=== PATIENT | female | born 1960 | race Caucasian/White ===

== ENCOUNTER 2016-10-22 12:30 | Emergency (ER) ==
[2016-10-22 12:34] VITALS: BP 129/84; TEMP 99.3; BMI 25.3
--- NOTE | 2016-10-22 13:07 | ED.PDOC ---
General ED Provider: Dr. BARAK PARTIDA JR Chief Complaint: Extremity Pain/Injury Stated Complaint: patient states she stepped out of van and felt a pop in right knee. states it twisted.rosa oct first[ End ]99.3 93 16 95% 129/84 06/27 has tightness and burning lateral leg superficial no knee involvement except pain when tries to stand on leg"burning and tingling" using heat and ice compress/ ibuprofen Time Seen by Physician: 13:03 Mode of Arrival: Walk-In Information Source: Patient Exam Limitations: No limitations Primary Care Provider: JIMMY SCHROEDER Nursing and Triage Documentation Reviewed and Agree: No Review of Systems - Review Of Systems Constitutional: Reports: No symptoms Eyes: Reports: No symptoms Ears, Nose, Mouth, Throat: Reports: No symptoms Respiratory: Reports: No symptoms Cardiac: Reports: No symptoms GI: Reports: No symptoms : Reports: No symptoms Musculoskeletal: Reports: Muscle pain, Muscle stiffness Skin: Reports: Change in color (since graft) Neurological: Reports: No symptoms Endocrine: Reports: No symptoms Hematologic/Lymphatic: Reports: No symptoms All Other Systems: Other Past Medical History - Past Medical History Previously Healthy: No Endocrine: Reports: None Cardiovascular: Reports: CAD, CHF Respiratory: Reports: None Hematological: Reports: Other (pancytopenia) Gastrointestinal: Reports: Other (hepc) Genitourinary: Reports: None Neuro/Psych: Reports: Anxiety, Depression, Bipolar Disorder Musculoskeletal: Reports: None Cancer: Reports: None Last Menstrual Period: n/a Other Pertinent Past Medical History: hep c/gi bleeds - Surgical History General Surgical History: Reports: Hysterectomy (hysterectomy 1991), Cholecystectomy (gallbladder 1990), Orthopedic (left arm surgery after palomino,), Other (oral surgery,left arm surgery after palomino,palomino on back), Unknown - Family History Family History: Reports: Unknown - Social History Smoking Status: Current every day smoker, Heavy tobacco smoker Hx Substance Use: Yes Alcohol Screening: Heavy Physical Exam - Physical Exam Appearance: Ill-appearing, Thin Pain Distress: Moderate Eyes: EDILMA, EOMI, Conjunctiva clear ENT: Ears normal, Nose normal, Oropharynx normal Neck: Supple Respiratory: Airway patent, Breath sounds clear, Breath sounds equal, Respirations nonlabored Cardiovascular: RRR, Pulses normal, No rub, No murmur GI/: Soft, Nontender, No masses, Bowel sounds normal, No Organomegaly Musculoskeletal: Limited ROM (RUE pain right lateral leg) Skin: Warm, Dry, Normal color Neurological: Sensation intact, Motor intact, Reflexes intact, Cranial nerves intact, Alert, Oriented Re-Evaluation - Re-Evaluation Time of Re-Evaluation: 13:39 (I had to take ibuprofen even though it cuases bleeding) Status: Improved (patietn states not allowed to take ultram due to varices, OK with flexeril and norco) Critical Care Note - Critical Care Note Total Time (mins): 0 Course - Course Orders, Labs, Meds: Orders Category Date Time Status KNEE, RIGHT 4 VIEWS Stat RADS 10/22/16 13:03 Completed Vital Signs: Temp Pulse Resp BP Pulse Ox 10/22/16 12:31 99.3 F 93 H 16 129/84 95 Departure - Departure Time of Disposition: 13:31 Disposition: HOME SELF-CARE Discharge Problem: Injury of lower extremity, Strain of unspecified muscle(s) and tendon(s) at lower leg level, right leg, initial encounter Instructions: Musculoskeletal Pain (ED) Condition: Good Pt referred to PMD for follow-up: Yes Additional Instructions: limit weight for three days cie or warm packs for comfort limit weight for three days recheck PMD one week ultram for pain once or twice a day only as needed Prescriptions: Hydrocodone Bit/Acetaminophen [[place] 5-325] 1 - 2 tab PO Q6HR PRN #12 tablet PRN Reason: pain Cyclobenzaprine HCl [Flexeril] 5 mg PO TID PRN #15 tablet PRN Reason: Spasms Allergies/Adverse Reactions: Allergies Latex, Natural Rubber Adverse Reaction (Verified 10/22/16 12:34) morphine Adverse Reaction (Verified 10/22/16 12:34) Penicillins Adverse Reaction (Verified 10/22/16 12:34) promethazine HCl [From Phenergan] Adverse Reaction (Verified 10/22/16 12:34) sulfamethoxazole [From Bactrim] Adverse Reaction (Verified 10/22/16 12:34) trimethoprim [From Bactrim] Adverse Reaction (Verified 10/22/16 12:34) Home Medications: Ambulatory Orders Lactulose 30 ml PO TID #2700 ml 05/12/16 Pantoprazole Sodium [Protonix] 40 mg PO BID #60 tablet. 05/12/16 Spironolactone [Aldactone] 25 mg PO DAILY #30 tablet 05/12/16 Gabapentin [Neurontin] 300 mg PO BID 06/19/16 Cyclobenzaprine HCl [Flexeril] 5 mg PO TID PRN #15 tablet 10/22/16 Hydrocodone Bit/Acetaminophen [[place] 5-325] 1 - 2 tab PO Q6HR PRN #12 tablet 01/02
--- NOTE | 2016-10-22 13:22 | DI ---
EXAM: Four views of the right knee. HISTORY: Pain on stepping down, twisting knee. COMPARISON: 10/11/2012 FINDINGS: There is no acute fracture or dislocation. Joint spaces and alignment are maintained. Smal l osteophytes project at the lateral compartment of the knee. There is no sizeable knee joint effus ion. Soft tissues are unremarkable. IMPRESSION: No acute osseous abnormality of the knee. Unchanged mild lateral compartment osteoarthritis.
== END 2016-10-22 13:51 | disposition home or self-care (01) ==
LOC: ED 12:30
DX: S86.911A Strain of unspecified muscle(s) and tendon(s) at lower leg level, right leg, initial encounter (principal); F17.210 Nicotine dependence, cigarettes, uncomplicated; X50.1XXA Overexertion from prolonged static or awkward postures, initial encounter
CPT/HCPCS: 99283

== ENCOUNTER 2016-12-21 23:01 | Outpatient (CLI) | END 2016-12-21 23:02 | LOC: AMBL 23:01 | PROVIDERS: ATTEND Family Medicine | DX: S40.029A Contusion of unspecified upper arm, initial encounter (principal); R52 Pain, unspecified; F19.90 Other psychoactive substance use, unspecified, uncomplicated; Z72.89 Other problems related to lifestyle; Y00.XXXA Assault by blunt object, initial encounter ==

== ENCOUNTER 2017-02-17 16:58 | Outpatient (CLI) | END 2017-02-17 16:59 | disposition home or self-care (01) | LOC: AMBL 16:58 | PROVIDERS: ATTEND Internal Medicine | DX: F10.129 Alcohol abuse with intoxication, unspecified (principal); F12.90 Cannabis use, unspecified, uncomplicated; S80.812A Abrasion, left lower leg, initial encounter; S80.12XA Contusion of left lower leg, initial encounter; S80.11XA Contusion of right lower leg, initial encounter; S40.022A Contusion of left upper arm, initial encounter; S40.021A Contusion of right upper arm, initial encounter ==

== ENCOUNTER 2017-02-24 01:06 | Outpatient (CLI) ==
[2017-02-25 13:03] VITALS: BMI 26.0
== END 2017-02-24 01:07 ==
LOC: AMBL 01:06
PROVIDERS: ATTEND Internal Medicine Geriatric Medicine
DX: F41.0 Panic disorder [episodic paroxysmal anxiety] (principal)

== ENCOUNTER 2017-02-25 01:47 | Emergency (ER) ==
[2017-02-25 01:47] VITALS: BMI 25.3
[2017-02-25 01:59] VITALS: BP 121/85; TEMP 97.8
[2017-02-25] MEDS: LIDOCAINE 1 % AMP 5 ML (SUTURES) ONE ×2 (02:25→02:30)
--- NOTE | 2017-02-25 02:28 | ED.PDOC ---
General ED Provider: Dr. HUGH MATOS-ER Chief Complaint: Extremity Pain/Injury Stated Complaint: i cut my forearm Time Seen by Physician: 01:50 Mode of Arrival: Wheelchair Information Source: Patient Exam Limitations: No limitations [facility] and Triage Documentation Reviewed and Agree: Yes Skin Complaint Exam - Laceration/Upper Ext. Complaint/Exam Location of Injury: Left, Forearm Mechanism of Injury: Laceration, Sharp trauma Onset/Duration: 2hrs Symptoms Are: Still present Initial Severity: Mild Current Severity: Mild Aggravating: Movement Alleviating: Compression Associated Signs and Symptoms: Denies: Fever, Chills, Erythema, Numbness, Tingling Differential Diagnoses: Laceration Review of Systems - Review Of Systems Constitutional: Reports: No symptoms Eyes: Reports: No symptoms Ears, Nose, Mouth, Throat: Reports: No symptoms Respiratory: Reports: No symptoms Cardiac: Reports: No symptoms GI: Reports: No symptoms : Reports: No symptoms Musculoskeletal: Reports: No symptoms Skin: Reports: No symptoms Neurological: Reports: No symptoms Endocrine: Reports: No symptoms Hematologic/Lymphatic: Reports: No symptoms All Other Systems: Reviewed and Negative Past Medical History - Past Medical History Previously Healthy: No Endocrine: Reports: None Cardiovascular: Reports: CAD, CHF Respiratory: Reports: None Hematological: Reports: Other (pancytopenia) Gastrointestinal: Reports: Other (hepc) Genitourinary: Reports: None Neuro/Psych: Reports: Anxiety, Depression, Bipolar Disorder Musculoskeletal: Reports: None Cancer: Reports: None Last Menstrual Period: N/A Other Pertinent Past Medical History: hep c/gi bleeds - Surgical History General Surgical History: Reports: Hysterectomy (hysterectomy 1991), Cholecystectomy (gallbladder 1990), Orthopedic (left arm surgery after palomino,), Other (oral surgery,left arm surgery after palomino,palomino on back), Unknown - Family History Family History: Reports: Unknown - Social History Smoking Status: Current every day smoker, Heavy tobacco smoker Hx Substance Use: Yes Alcohol Screening: Heavy - Immunizations Tetanus Shot up to Date: Yes Physical Exam - Physical Exam Appearance: Well-appearing, No pain distress, Well-nourished Pain Distress: Mild Eyes: EDILMA, EOMI, Conjunctiva clear ENT: Ears normal, Nose normal, Oropharynx normal Neck: Supple Respiratory: Airway patent, Breath sounds clear, Breath sounds equal, Respirations nonlabored Cardiovascular: RRR, Pulses normal, No rub, No murmur GI/: Soft, Nontender, No masses, Bowel sounds normal, No Organomegaly Musculoskeletal: Normal strength, ROM intact, No edema, No calf tenderness Skin: Warm Neurological: Sensation intact Psychiatric: Affect appropriate Interpretation - Radiology Interpretation Radiology Interpretation By: ED Physician Radiology Results: Negative Procedures - Laceration/Wound Repair No standard instances Wound Description: Linear Wound Length (cm): 3.5cm left forearm Wound Explored: Clean Wound Irrigated: Yes Wound Prep: Betadine Anesthesia: Lidocaine Wound Debrided: Minimal Undermining: Minimal Wound Margins: Revised Wound Repaired With: Sutures Suture Size and Type: 4.0 prolene Number of Sutures: 7 Layer Closure?: No Sterile Dressing Applied?: Yes Splint Applied?: No Sling Applied?: No Critical Care Note - Critical Care Note Total Time (mins): 0 Course - Course Orders, Labs, Meds: Orders Category Date Time Status Hydrocodone Bit/Acetaminophen [[place] 5-325] MEDS 02/25/17 02:41 Discontinued 1 tab PO ONCE STA Lidocaine HCl/Pf [Lidocaine 1 % Amp 5 ml (Sutures)] MEDS 02/25/17 02:42 Discontinued 10 ml .ROUTE .STK-MED ONE Lidocaine HCl/Pf [Lidocaine 1 % Amp 5 ml (Sutures)] MEDS 02/25/17 02:57 Discontinued 10 ml SUBCUT ONCE STA FOREARM, LEFT 2 VIEWS Stat RADS 02/25/17 02:25 Taken Medications Discontinued Medications Generic Name Dose Route Start Last Admin Trade Name Freq PRN Reason Stop Dose Admin Acetaminophen/Hydrocodone Bitart 1 tab 02/25/17 02:41 02/25/17 02:45 [place] 5-325 PO 02/25/17 02:42 1 tab ONCE STA Administration Lidocaine HCl 10 ml 02/25/17 02:57 Lidocaine 1 % Amp 5 Ml (Sutures) SUBCUT 02/25/17 02:58 ONCE STA Vital Signs: Temp Pulse Resp BP Pulse Ox 02/25/17 01:47 97.8 F 84 20 121/85 97 Departure - Departure Time of Disposition: 02:35 Disposition: HOME SELF-CARE Discharge Problem: Injury of upper extremity Instructions: Laceration (ED), Care For Your Stitches (ED) Condition: Good Pt referred to PMD for follow-up: Yes Additional Instructions: routine lac care---sutures out in 7 days--return if any signs of infection Allergies/Adverse Reactions: Allergies Latex, Natural Rubber Adverse Reaction (Verified 10/22/16 12:34) morphine Adverse Reaction (Verified 10/22/16 12:34) Penicillins Adverse Reaction (Verified 10/22/16 12:34) promethazine HCl [From Phenergan] Adverse Reaction (Verified 10/22/16 12:34) sulfamethoxazole [From Bactrim] Adverse Reaction (Verified 10/22/16 12:34) trimethoprim [From Bactrim] Adverse Reaction (Verified 10/22/16 12:34) Home Medications: Ambulatory Orders Lactulose 30 ml PO TID #2700 ml 05/12/16 Pantoprazole Sodium [Protonix] 40 mg PO BID #60 tablet. 05/12/16 Spironolactone [Aldactone] 25 mg PO DAILY #30 tablet 05/12/16 Gabapentin [Neurontin] 300 mg PO BID 06/19/16 Cyclobenzaprine HCl [Flexeril] 5 mg PO TID PRN #15 tablet 10/22/16 Hydrocodone Bit/Acetaminophen [[place] 5-325] 1 - 2 tab PO Q6HR PRN #12 tablet 01/02 Clonazepam [Klonopin] 0.5 mg PO BID #60 10/27/16 Sertraline HCl [Zoloft] 50 mg PO BEDTIME #30 10/27/16 Disposition Discussed With: Patient
[2017-02-25] MEDS ORDERED: NORCO 5-325 PO STA (02:41)
[2017-02-25] MEDS ORDERED: LIDOCAINE 1 % AMP 5 ML (SUTURES) SUBCUT STA (02:57)
--- NOTE | 2017-02-25 07:03 | DI ---
EXAM: Two views of the left forearm HISTORY: Laceration of concern for foreign body. COMPARISON: None FINDINGS: There is no lytic or blastic lesion of the left forearm. There is no displaced fracture o r dislocation. The joint spaces are maintained. The soft tissues demonstrate no abnormal foreign b rosy with mild soft tissue injury proximally. IMPRESSION: Mild soft tissue injury with no visualized foreign body.
== END 2017-02-25 03:05 | disposition home or self-care (01) ==
LOC: ED 01:47
DX: S51.812A Laceration without foreign body of left forearm, initial encounter (principal); W45.8XXA Other foreign body or object entering through skin, initial encounter; F17.210 Nicotine dependence, cigarettes, uncomplicated; Z98.890 Other specified postprocedural states
CPT/HCPCS: 99282; 99283

== ENCOUNTER 2017-02-25 12:58 | Emergency (ER) ==
[2017-02-25 13:03] VITALS: BP 92/67; TEMP 99.6; BMI 26.0
--- NOTE | 2017-02-25 13:33 | ED.PDOC ---
General ED Provider: Dr. MOLLY BLISS Chief Complaint: Wound Check Stated Complaint: WOUND CHECK LEFT ELBOW Time Seen by Physician: 13:00 Mode of Arrival: Walk-In Information Source: Patient Exam Limitations: No limitations [facility] and Triage Documentation Reviewed and Agree: Yes Skin Complaint Exam - Laceration/Upper Ext. Complaint/Exam Location of Injury: Left, Elbow (THIS MORNING WAS SUTURED RETURNS FOR ANTIBIOTICS AND WOUND CHECK) Initial Severity: Moderate Current Severity: Moderate Aggravating: None Alleviating: None Associated Signs and Symptoms: Denies: Fever, Chills, Erythema, Numbness, Tingling Differential Diagnoses: Laceration Review of Systems - Review Of Systems Constitutional: Reports: No symptoms Eyes: Reports: No symptoms Ears, Nose, Mouth, Throat: Reports: No symptoms Respiratory: Reports: No symptoms Cardiac: Reports: No symptoms GI: Reports: No symptoms : Reports: No symptoms Musculoskeletal: Reports: No symptoms Skin: Reports: Other (LACERATION) Neurological: Reports: No symptoms Endocrine: Reports: No symptoms Hematologic/Lymphatic: Reports: No symptoms All Other Systems: Reviewed and Negative Past Medical History - Past Medical History Previously Healthy: No Endocrine: Reports: None Cardiovascular: Reports: CAD, CHF Respiratory: Reports: None Hematological: Reports: Other (pancytopenia) Gastrointestinal: Reports: Other (hepc) Genitourinary: Reports: None Neuro/Psych: Reports: Anxiety, Depression, Bipolar Disorder Musculoskeletal: Reports: None Cancer: Reports: None Last Menstrual Period: na Other Pertinent Past Medical History: hep c/gi bleeds - Surgical History General Surgical History: Reports: Hysterectomy (hysterectomy 1991), Cholecystectomy (gallbladder 1990), Orthopedic (left arm surgery after palomino,), Other (oral surgery,left arm surgery after palomino,palomino on back), Unknown - Family History Family History: Reports: Unknown - Social History Smoking Status: Current every day smoker, Heavy tobacco smoker Hx Substance Use: Yes Alcohol Screening: Occasionally - Immunizations Tetanus Shot up to Date: Yes Physical Exam - Physical Exam Appearance: Well-appearing, No pain distress, Well-nourished Eyes: EDILMA, EOMI, Conjunctiva clear ENT: Ears normal, Nose normal, Oropharynx normal Respiratory: Airway patent, Breath sounds clear, Breath sounds equal, Respirations nonlabored Cardiovascular: RRR, Pulses normal, No rub, No murmur GI/: Soft, Nontender, No masses, Bowel sounds normal, No Organomegaly Musculoskeletal: Normal strength, ROM intact, No edema, No calf tenderness Skin: Warm, Dry (WOUND IS IN GOOD REPAIR) Neurological: Sensation intact, Motor intact, Reflexes intact, Cranial nerves intact, Alert, Oriented Psychiatric: Affect appropriate, Mood appropriate Critical Care Note - Critical Care Note Total Time (mins): 0 Course - Course Vital Signs: Temp Pulse Resp BP Pulse Ox 02/25/17 12:59 99.6 F 110 H 20 92/67 95 Departure - Departure Time of Disposition: 13:33 Disposition: HOME SELF-CARE Discharge Problem: Encounter for wound re-check Instructions: Acute Wound Care (ED) Condition: Good Pt referred to PMD for follow-up: No Prescriptions: Oxycodone-Acetaminophe 7.5-325 [Percocet 7.5-325] 1 tab PO Q8H #7 tablet Allergies/Adverse Reactions: Allergies Latex, Natural Rubber Adverse Reaction (Verified 02/25/17 13:09) morphine Adverse Reaction (Verified 02/25/17 13:09) Penicillins Adverse Reaction (Verified 02/25/17 13:09) promethazine HCl [From Phenergan] Adverse Reaction (Verified 02/25/17 13:09) sulfamethoxazole [From Bactrim] Adverse Reaction (Verified 02/25/17 13:09) trimethoprim [From Bactrim] Adverse Reaction (Verified 02/25/17 13:09) Home Medications: Ambulatory Orders Lactulose 30 ml PO TID #2700 ml 05/12/16 Pantoprazole Sodium [Protonix] 40 mg PO BID #60 tablet. 05/12/16 Spironolactone [Aldactone] 25 mg PO DAILY #30 tablet 05/12/16 Gabapentin [Neurontin] 300 mg PO BID 06/19/16 Cyclobenzaprine HCl [Flexeril] 5 mg PO TID PRN #15 tablet 10/22/16 Hydrocodone Bit/Acetaminophen [[place] 5-325] 1 - 2 tab PO Q6HR PRN #12 tablet 01/02 Clonazepam [Klonopin] 0.5 mg PO BID #60 10/27/16 Sertraline HCl [Zoloft] 50 mg PO BEDTIME #30 10/27/16 Oxycodone-Acetaminophe 7.5-325 [Percocet 7.5-325] 1 tab PO Q8H #7 tablet
== END 2017-02-25 13:37 | disposition home or self-care (01) ==
LOC: ED 12:58
DX: S51.012A Laceration without foreign body of left elbow, initial encounter (principal); Z98.890 Other specified postprocedural states; F17.210 Nicotine dependence, cigarettes, uncomplicated
CPT/HCPCS: 99282

== ENCOUNTER 2017-06-09 17:00 | Outpatient (CLI) | END 2017-06-09 17:01 | disposition short-term general hospital (02) | LOC: AMBL 17:00 | PROVIDERS: ATTEND Internal Medicine | DX: R07.9 Chest pain, unspecified (principal); F41.9 Anxiety disorder, unspecified; S41.101A Unspecified open wound of right upper arm, initial encounter ==

== ENCOUNTER 2017-06-21 14:49 | Emergency (ER) ==
[2017-06-21 14:56] VITALS: BP 134/90; TEMP 98.6; BMI 28.0
--- NOTE | 2017-06-21 15:37 | ED.PDOC ---
General ED Provider: Dr. MOLLY BLISS Chief Complaint: Rash Stated Complaint: abscess axilla, groin Time Seen by Physician: 15:00 Mode of Arrival: Walk-In Information Source: Patient Exam Limitations: No limitations Primary Care Provider: JIMMY SCHROEDER Nursing and Triage Documentation Reviewed and Agree: Yes Review of Systems - Review Of Systems Constitutional: Reports: No symptoms Eyes: Reports: No symptoms Ears, Nose, Mouth, Throat: Reports: No symptoms Respiratory: Reports: No symptoms Cardiac: Reports: No symptoms GI: Reports: No symptoms : Reports: No symptoms Musculoskeletal: Reports: No symptoms Skin: Reports: Other (abscess axilla groin) Neurological: Reports: No symptoms Endocrine: Reports: No symptoms Hematologic/Lymphatic: Reports: No symptoms All Other Systems: Reviewed and Negative Past Medical History - Past Medical History Previously Healthy: No Endocrine: Reports: None Cardiovascular: Reports: CAD, CHF Respiratory: Reports: None Hematological: Reports: Other (pancytopenia) Gastrointestinal: Reports: Other (hepc) Genitourinary: Reports: None Neuro/Psych: Reports: Anxiety, Depression, Bipolar Disorder Musculoskeletal: Reports: None Cancer: Reports: None Last Menstrual Period: hysterectomy Other Pertinent Past Medical History: hep c/gi bleeds - Surgical History General Surgical History: Reports: Hysterectomy (hysterectomy 1991), Cholecystectomy (gallbladder 1990), Orthopedic (left arm surgery after palomino,), Other (oral surgery,left arm surgery after palomino,palomino on back), Unknown - Family History Family History: Reports: Unknown - Social History Smoking Status: Current every day smoker, Heavy tobacco smoker Hx Substance Use: Yes Alcohol Screening: Occasionally Physical Exam - Physical Exam Appearance: Well-appearing, No pain distress, Well-nourished Eyes: EDILMA, EOMI, Conjunctiva clear ENT: Ears normal, Nose normal, Oropharynx normal Respiratory: Airway patent, Breath sounds clear, Breath sounds equal, Respirations nonlabored Cardiovascular: RRR, Pulses normal, No rub, No murmur GI/: Soft, Nontender, No masses, Bowel sounds normal, No Organomegaly Musculoskeletal: Normal strength, ROM intact, No edema, No calf tenderness Skin: Warm, Dry (abscess right and left axilla none pointing ) Neurological: Sensation intact, Motor intact, Reflexes intact, Cranial nerves intact, Alert, Oriented Psychiatric: Affect appropriate, Mood appropriate Critical Care Note - Critical Care Note Total Time (mins): 0 Course - Course Vital Signs: Temp Pulse Resp BP Pulse Ox 06/21/17 14:49 98.6 F 84 20 134/90 95 Departure - Departure Time of Disposition: 15:39 Disposition: HOME SELF-CARE Discharge Problem: Abscess Instructions: Abscess (ED) Condition: Good Pt referred to PMD for follow-up: Yes Additional Instructions: Please call your Family Physician as soon as possible to schedule a follow-up appointment. Allergies/Adverse Reactions: Allergies bismuth subsalicylate [From Pepto-Bismol] Adverse Reaction (Verified 06/21/17 14 :59) ibuprofen Adverse Reaction (Verified 06/21/17 14:59) Latex, Natural Rubber Adverse Reaction (Verified 06/21/17 14:58) morphine Adverse Reaction (Verified 06/21/17 14:58) Penicillins Adverse Reaction (Verified 06/21/17 14:58) promethazine HCl [From Phenergan] Adverse Reaction (Verified 06/21/17 14:58) sulfamethoxazole [From Bactrim] Adverse Reaction (Verified 06/21/17 14:58) trimethoprim [From Bactrim] Adverse Reaction (Verified 06/21/17 14:58) Home Medications: Ambulatory Orders Lactulose 30 ml PO TID #2700 ml 05/12/16 Pantoprazole Sodium [Protonix] 40 mg PO BID #60 tablet. 05/12/16 Spironolactone [Aldactone] 25 mg PO DAILY #30 tablet 05/12/16 Gabapentin [Neurontin] 300 mg PO BID 06/19/16 Clonazepam [Klonopin] 0.5 mg PO BID #60 10/27/16 Sertraline HCl [Zoloft] 50 mg PO BEDTIME #30 10/27/16 Disposition Discussed With: Patient
== END 2017-06-21 15:52 | disposition home or self-care (01) ==
LOC: ED 14:49
DX: L02.412 Cutaneous abscess of left axilla (principal); L02.411 Cutaneous abscess of right axilla; L02.214 Cutaneous abscess of groin; F17.210 Nicotine dependence, cigarettes, uncomplicated
CPT/HCPCS: 99282

== ENCOUNTER 2017-06-30 10:13 | Emergency (ER) ==
[2017-06-30 10:20] VITALS: BP 118/76; TEMP 97.5; BMI 29.4
--- NOTE | 2017-06-30 10:39 | ED.PDOC ---
General ED Provider: Dr. EDITH CUEVAS Chief Complaint: Wound Check Stated Complaint: Breaks out in skin lesions which get infected. Seen here last week and treated with Cipro. All infections resolved but lesions have appeared on posterior thighs, labia and right upper inner arm. Time Seen by Physician: 10:33 Mode of Arrival: Walk-In Information Source: Patient Exam Limitations: No limitations Primary Care Provider: JIMMY SCHROEDER Nursing and Triage Documentation Reviewed and Agree: Yes Skin Complaint Exam - Skin/Soft Tissue Complaint/Exam Onset/Duration: most recently x 2 days, but recurrently x months Symptoms Are: Still present Timing: Constant Initial Severity: Mild Current Severity: Moderate Location: posterior thighs, left labia, and right upper medial arm Character: Reports: Redness, Raised, Painful Aggravating: Reports: Touch Alleviating: Reports: Medications (previous infected lesions resolved with Cipro ) Associated Signs and Symptoms: Reports: Tenderness Related History: Reports: Similar episode (seen by Martha optical coating technician while an inpatient and was told to f/u with optical coating technician as an OP) Related Surgical History: Reports: None Recent Exposure to Others w/Similar Symptoms: No Skin Findings: Present: Skin lesion (nultiple skin lesions, dried cracked skin all < 0.5 cm in length) Differential Diagnoses: Other (dermatitis - etiology unknown) Review of Systems - Review Of Systems Constitutional: Reports: No symptoms Eyes: Reports: No symptoms Ears, Nose, Mouth, Throat: Reports: No symptoms Respiratory: Reports: No symptoms Cardiac: Reports: No symptoms GI: Reports: No symptoms : Reports: No symptoms Musculoskeletal: Reports: No symptoms Skin: Reports: Lesions (see HPI) Neurological: Reports: No symptoms All Other Systems: Reviewed and Negative Past Medical History - Past Medical History Previously Healthy: No Endocrine: Reports: None Cardiovascular: Reports: CAD, CHF Respiratory: Reports: None Hematological: Reports: Other (pancytopenia) Gastrointestinal: Reports: Other (hepc) Genitourinary: Reports: None Neuro/Psych: Reports: Anxiety, Depression, Bipolar Disorder Musculoskeletal: Reports: None Cancer: Reports: None Last Menstrual Period: none Other Pertinent Past Medical History: hep c/gi bleeds,alcoholism (last drink 03/21),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) - Surgical History General Surgical History: Reports: Hysterectomy (hysterectomy 1991), Cholecystectomy (gallbladder 1990), Orthopedic (left arm surgery after palomino,), Other (oral surgery,left arm surgery after palomino,palomino on back) - Family History Family History: Reports: Unknown - Social History Smoking Status: Current every day smoker, Heavy tobacco smoker Hx Substance Use: Yes Alcohol Screening: Occasionally Lives: Alone - Immunizations Tetanus Shot up to Date: No Influenza Vaccine within 12 Months: No Pneumococcal Vaccine up to Date: No Physical Exam - Physical Exam Appearance: Well-appearing, No pain distress, Well-nourished Ill-appearing: None Pain Distress: None Eyes: EDILMA, EOMI, Conjunctiva clear ENT: Ears normal, Nose normal, Oropharynx normal Neck: Supple Respiratory: Airway patent, Breath sounds clear, Breath sounds equal, Respirations nonlabored Cardiovascular: RRR, Pulses normal, No rub, No murmur GI/: Soft, Nontender, No masses, Bowel sounds normal, No Organomegaly Musculoskeletal: Normal strength, ROM intact, No edema, No calf tenderness Skin: Warm, Dry (several dry cracked latrice of skin on each posterior thigh, left labia, and left upper medial arm. No erythema, not tender to palpation), Normal color Neurological: Sensation intact, Motor intact, Reflexes intact, Cranial nerves intact, Alert, Oriented Psychiatric: Affect appropriate, Mood appropriate, Anxious (somewhat pressured speech, often going off topic) Critical Care Note - Critical Care Note Total Time (mins): 0 Course - Course Vital Signs: Temp Pulse Resp BP Pulse Ox 06/30/17 10:13 97.5 F L 75 18 118/76 96 Departure - Departure Time of Disposition: 10:56 Disposition: HOME SELF-CARE Discharge Problem: Dermatitis Instructions: Dermatitis (ED) Condition: Good Pt referred to PMD for follow-up: Yes (See PCP for dermatology referral) Allergies/Adverse Reactions: Allergies bismuth subsalicylate [From Pepto-Bismol] Adverse Reaction (Verified 06/30/17 10 :22) ibuprofen Adverse Reaction (Verified 06/30/17 10:22) Latex, Natural Rubber Adverse Reaction (Verified 06/30/17 10:22) morphine Adverse Reaction (Verified 06/30/17 10:22) Penicillins Adverse Reaction (Verified 06/30/17 10:22) promethazine HCl [From Phenergan] Adverse Reaction (Verified 06/30/17 10:22) sulfamethoxazole [From Bactrim] Adverse Reaction (Verified 06/30/17 10:22) trimethoprim [From Bactrim] Adverse Reaction (Verified 06/30/17 10:22) Home Medications: Ambulatory Orders Lactulose 30 ml PO TID #2700 ml 05/12/16 Pantoprazole Sodium [Protonix] 40 mg PO BID #60 tablet. 05/12/16 Spironolactone [Aldactone] 25 mg PO DAILY #30 tablet 05/12/16 Gabapentin [Neurontin] 300 mg PO BID 06/19/16 Clonazepam [Klonopin] 0.5 mg PO BID #60 10/27/16 Sertraline HCl [Zoloft] 50 mg PO BEDTIME #30 10/27/16 Acetaminophen with Codeine [Tylenol #3 Tab] 1 tab PO Q4H PRN #20 tablet Ciprofloxacin HCl [Cipro] 500 mg PO BID #10 tablet 06/30/17 Disposition Discussed With: Patient
== END 2017-06-30 11:05 | disposition home or self-care (01) ==
LOC: ED 10:13
DX: L30.9 Dermatitis, unspecified (principal); F17.210 Nicotine dependence, cigarettes, uncomplicated
CPT/HCPCS: 99283

== ENCOUNTER 2017-07-18 09:06 | Inpatient (IN) ==
[2017-07-18 09:13] VITALS: BMI 29.5
[2017-07-18 09:56] LABS: BASOPHILS % (AUTO) 0.4 % (0.0-3.0); EOSINOPHILS # (AUTO) 0.1 K/ul (0.0-0.7); EOSINOPHILS % (AUTO) 3.1 % (0.0-7.0); HEMATOCRIT 34.9 % (37.0-47.0); HEMOGLOBIN 12.1 g/dl (12.0-16.0); IMMATURE GRANULOCYTE % (AUTO) 0.4 % (0.0-5.0); LYMPHOCYTES # (AUTO) 0.5 K/uL (0.60-3.4); MEAN CORPUSCULAR HEMOGLOBIN 31.8 pg (27.0-31.0); MEAN CORPUSCULAR HGB CONC 34.7 (31.8-35.4); MEAN CORPUSCULAR VOLUME 91.6 fl (81.0-99.0); MONOCYTES # (AUTO) 0.6 K/uL (0.4-2.0); MONOCYTES % (AUTO) 24.9 (0-10); NEUTROPHILS # (AUTO) 1.2 K/ul (2.0-6.9); NEUTROPHILS % (AUTO) 50.2; RED BLOOD COUNT 3.81 10^6/ul (4.20-5.40); WHITE BLOOD COUNT 2.29 K/ul (4.6-10.2)
[2017-07-18 10:04] LABS: PLATELET COUNT 35 10^3/uL (140-440)
[2017-07-18 10:20] LABS: ALBUMIN 2.5 g/dL (3.4-5.0); ALBUMIN/GLOBULIN RATIO 0.66; BILIRUBIN,TOTAL 1.62 mg/dL (0.00-1.20); BUN/CREATININE RATIO 16.66; CALCIUM 8.4 mg/dL (8.2-10.2); CREATININE 0.66 mg/dL (0.60-1.30); TOTAL PROTEIN 6.3 g/dL (6.4-8.2); TROPONIN I 0.015 ng/ml (0.0000-0.4000)
[2017-07-18 10:21] LABS: BILIRUBIN,URINE Negative (NEGATIVE); KETONES,URINE Negative (NEGATIVE); LEUKOCYTE ESTERASE ,URINE Negative (NEGATIVE); NITRITE,URINE Negative (NEGATIVE); PROTEIN,URINE Negative (NEGATIVE); URINE, BLOOD 1+ (NEGATIVE)
[2017-07-18 10:27] LABS: ADD URINE MICROSCOPIC YES
--- NOTE | 2017-07-18 10:39 | ED.PDOC ---
General ED Provider: Dr. MOLLY BLISS Chief Complaint: Syncope Stated Complaint: syncope 1 day ago Time Seen by Physician: 09:11 Mode of Arrival: Walk-In Information Source: Patient Exam Limitations: No limitations Primary Care Provider: JIMMY SCHROEDER Nursing and Triage Documentation Reviewed and Agree: Yes Neurological Complaint Exam - Syncope/Near Syncope Complaint/Exam Onset/Duration: 1 day ago Symptoms Are: Resolved (1) Episodes Lasting: Seconds Number of Episodes: 1 Episodes Witnessed: No Loss of Consciousness: No Associated Head Trauma: No Activity at Onset: At rest Aggravating: None Alleviating: Reports: None Associated Signs and Symptoms: Denies: Pain, Decreased oral intake, Vomiting, Diarrhea, GI blood loss, Short of air, Chest pain, Palpitations, Diaphoresis, Lightheadedness, Dizziness, Weakness, AMS, Numbness, Headache, Seizure, Remote head trauma, Recent head trauma JVD Present: No Carotid Bruit Present: No Rectal Heme Positive: No Glascow Coma Scale (see protocol): 15 Nystagmus Present: No Gag Reflex Present: Yes Meningeal Signs Positive: No Focal Weakness: Present: None Focal Sensory Loss: Present: None Gait: Normal Babinski Sign: Negative Right, Negative Left Differential Diagnoses: Dysrhythmia, Hyperventilation, Hypoglycemia, Metabolic Reaction, Vasovagal Episode Quality Indicators for Cardiac Chest Pain: EKG in 10min. Quality Indicator For Non-Traumatic Chest Pain/Syncope: EKG Performed Review of Systems - Review Of Systems Constitutional: Reports: No symptoms Eyes: Reports: No symptoms Ears, Nose, Mouth, Throat: Reports: No symptoms Respiratory: Reports: No symptoms Cardiac: Reports: Syncope GI: Reports: No symptoms : Reports: No symptoms Musculoskeletal: Reports: No symptoms Skin: Reports: No symptoms Neurological: Reports: No symptoms Endocrine: Reports: No symptoms Hematologic/Lymphatic: Reports: No symptoms All Other Systems: Reviewed and Negative Past Medical History - Past Medical History Previously Healthy: No Endocrine: Reports: None Cardiovascular: Reports: CAD, CHF Respiratory: Reports: None Hematological: Reports: Other (pancytopenia) Gastrointestinal: Reports: Other (hepc) Genitourinary: Reports: None Neuro/Psych: Reports: Anxiety, Depression, Bipolar Disorder Musculoskeletal: Reports: None Cancer: Reports: None Last Menstrual Period: n/a Other Pertinent Past Medical History: hep c/gi bleeds,alcoholism (last drink 03/21),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) - Surgical History General Surgical History: Reports: Hysterectomy (hysterectomy 1991), Cholecystectomy (gallbladder 1990), Orthopedic (left arm surgery after palomino,), Other (oral surgery,left arm surgery after palomino,palomino on back) - Family History Family History: Reports: Unknown - Social History Smoking Status: Current every day smoker, Light tobacco smoker Hx Substance Use: No (marijuana) Alcohol Screening: None - Immunizations Influenza Vaccine within 12 Months: No Pneumococcal Vaccine up to Date: No Physical Exam - Physical Exam Appearance: Well-appearing, No pain distress, Well-nourished Eyes: EDILMA, EOMI, Conjunctiva clear ENT: Ears normal, Nose normal, Oropharynx normal Respiratory: Airway patent, Breath sounds clear, Breath sounds equal, Respirations nonlabored Cardiovascular: RRR, Pulses normal, No rub, No murmur GI/: Soft, Nontender, No masses, Bowel sounds normal, No Organomegaly Musculoskeletal: Normal strength, ROM intact, No edema, No calf tenderness Skin: Warm, Dry, Normal color Neurological: Sensation intact, Motor intact, Reflexes intact, Cranial nerves intact, Alert, Oriented Psychiatric: Affect appropriate, Mood appropriate Interpretation - Microarray Operations Vice President Rate: Normal Rhythm: Sinus Ectopy: None Physician Notification - Case Discussed Physician Notified: margarito Time of Notification: 10:54 Admit To: Inpatient Critical Care Note - Critical Care Note Total Time (mins): 0 Course - Course Hematology/Chemistry: 07/18/17 09:45 07/18/17 09:45 Orders, Labs, Meds: Lab Review 07/18/17 07/18/17 07/18/17 09:29 09:45 09:45 WBC 2.29 L RBC 3.81 L Hgb 12.1 Hct 34.9 L MCV 91.6 MCH 31.8 H MCHC 34.7 RDW Coeff of Eli 15.8 H Plt Count 35 L Immature Gran % (Auto) 0.4 Neut % (Auto) 50.2 Lymph % (Auto) 21.0 [place] % (Auto) 24.9 H Eos % (Auto) 3.1 Baso % (Auto) 0.4 Immature Gran # (Auto) 0.0 Neut # 1.2 L Lymph # 0.5 L [place] # 0.6 Eos # 0.1 Baso # 0.0 Sodium 140 Potassium 4.0 Chloride 113 H Carbon Dioxide 21 Anion Gap 10.0 BUN 11 Creatinine 0.66 Estimated GFR (MDRD) 93.00 BUN/Creatinine Ratio 16.66 Glucose 92 Calcium 8.4 Total Bilirubin 1.62 H AST 85 H ALT 48 Alkaline Phosphatase 177 H Total Creatine Kinase 102 Troponin I 0.0150 Total Protein 6.3 L Albumin 2.5 L Globulin 3.8 Albumin/Globulin Ratio 0.66 Urine Color Yellow Urine Clarity Clear Urine pH 6.0 Ur Specific [place] 1.015 Urine Protein Negative Urine Glucose (UA) Negative Urine Ketones Negative Urine Blood 1+ Urine Nitrite Negative Urine Bilirubin Negative Urine Urobilinogen 1.0 Ur Leukocyte Esterase Negative Urine Microscopic RBC 5-10 Ur Squamous Epith Cells 2-5 Orders Category Date Time Status EKG-(ED ONLY) Stat CARDIO 07/18/17 09:28 Completed CBC W/ AUTO DIFF Stat LAB 07/18/17 09:45 Completed COMPREHENSIVE METABOLIC PANEL Stat LAB 07/18/17 09:45 Completed CREATINE KINASE Stat LAB 07/18/17 09:45 Completed TROPONIN I Stat LAB 07/18/17 09:45 Completed URINALYSIS C & S IF INDICATED Stat LAB 07/18/17 09:29 Completed Vital Signs: Temp Pulse Resp BP Pulse Ox 07/18/17 09:07 97.4 F L 77 16 116/86 95 Departure - Departure Time of Disposition: 10:39 (octaviano requested doctor margarito to attend to her ) Disposition: HOME SELF-CARE Discharge Problem: Syncope, Pancytopenia Anemia Qualifiers: Anemia type: unspecified type Qualified Code(s): D64.9 - Anemia, unspecified Hematuria Qualifiers: Hematuria type: unspecified type Qualified Code(s): R31.9 - Hematuria, unspecified Instructions: Syncope (ED), Syncope in Older Adults (ED) Condition: Good Pt referred to PMD for follow-up: Yes Additional Instructions: Please call your Family Physician as soon as possible to schedule a follow-up appointment. Allergies/Adverse Reactions: Allergies bismuth subsalicylate [From Pepto-Bismol] Adverse Reaction (Verified 07/18/17 09 :13) ibuprofen Adverse Reaction (Verified 07/18/17 09:13) Latex, Natural Rubber Adverse Reaction (Verified 07/18/17 09:13) morphine Adverse Reaction (Verified 07/18/17 09:13) Penicillins Adverse Reaction (Verified 07/18/17 09:13) promethazine HCl [From Phenergan] Adverse Reaction (Verified 07/18/17 09:13) sulfamethoxazole [From Bactrim] Adverse Reaction (Verified 07/18/17 09:13) trimethoprim [From Bactrim] Adverse Reaction (Verified 07/18/17 09:13) Home Medications: Ambulatory Orders Lactulose 30 ml PO TID #2700 ml 05/12/16 Spironolactone [Aldactone] 25 mg PO DAILY #30 tablet 05/12/16 Gabapentin [Neurontin] 300 mg PO BID 06/19/16 Sertraline HCl [Zoloft] 50 mg PO BEDTIME #30 10/27/16 Furosemide [Lasix] 20 mg PO EVERY OTHER DAY 07/18/17 Risperidone [Risperdal] 4 mg PO DAILY 07/18/17
[2017-07-18] MEDS ORDERED: SOLU-MEDROL 125 MG IVP STA (11:44)
[2017-07-18 12:30] LABS: PARTIAL THROMBOPLASTIN TIME 33.2 SEC (23.9-40.0); PROTHROMBIN TIME 13.6 SEC (9.3-11.0)
[2017-07-18] MEDS ORDERED: MORPHINE 2 MG/ML SYRINGE IVP PRN (14:44)
[2017-07-18] MEDS ORDERED: LACTULOSE PO SCH (15:00)
[2017-07-18] MEDS: DEMEROL 25 MG/ML SYRINGE IVP PRN (15:55)
[2017-07-18] MEDS: SODIUM CHLORIDE 1,000 ML IV SCH (16:04)
[2017-07-18] MEDS: SOLU-MEDROL 40 MG IVP SCH ×2 (16:05→21:26)
[2017-07-18] MEDS: LACTULOSE PO SCH ×2 (16:43→21:11)
[2017-07-18 17:34] LABS: TROPONIN I 0.01 ng/ml (0.0000-0.4000)
--- NOTE | 2017-07-18 17:46 | CT ---
EXAM: CT BRAIN HISTORY: Syncope, fall TECHNIQUE: CT brain without intravenous contrast. 5-mm axial sections with Reformations. COMPARISON: 10/02/2016 FINDINGS: Brain is unremarkable without distinct evidence of hemorrhage or large vessel distribution recent i schemic infarction. There is no suggestion of acute hydrocephalus or subdural fluid collection. No mass or mass effect. Cranium is within normal limits. Mastoid air cells are aerated. The visualized paranasal sinuses a re clear. IMPRESSION: No acute intracranial process. No skull fracture.
[2017-07-18] MEDS: NEURONTIN PO SCH (21:25)
[2017-07-18] MEDS: ZOLOFT PO SCH (21:25)
[2017-07-18] MEDS: KLONOPIN PO SCH (21:25)
[2017-07-18] MEDS: ZOFRAN 4 MG/2 ML IVP PRN (21:25)
[2017-07-18] MEDS: DUONEB NEB SCH (22:10)
[2017-07-19] MEDS: DEMEROL 25 MG/ML SYRINGE IVP PRN ×3 (00:12→17:39)
[2017-07-19 02:24] LABS: HEMATOCRIT 35.9 % (37.0-47.0); HEMOGLOBIN 12.3 g/dl (12.0-16.0); MEAN CORPUSCULAR HGB CONC 34.3 (31.8-35.4); MEAN CORPUSCULAR VOLUME 93.5 fl (81.0-99.0); RED BLOOD COUNT 3.84 10^6/ul (4.20-5.40)
[2017-07-19 02:49] LABS: ALBUMIN 2.6 g/dL (3.4-5.0); ALBUMIN/GLOBULIN RATIO 0.65; TOTAL PROTEIN 6.6 g/dL (6.4-8.2)
[2017-07-19 02:50] LABS: BILIRUBIN,TOTAL 1.55 mg/dL (0.00-1.20); BUN/CREATININE RATIO 14.06; CREATININE 0.64 mg/dL (0.60-1.30)
[2017-07-19 02:56] LABS: CREATINE KINASE 86 U/L
[2017-07-19 03:35] LABS: WHITE BLOOD COUNT 0.77 K/ul (4.6-10.2)
[2017-07-19 03:36] LABS: PLATELET COUNT 25 10^3/uL (140-440)
[2017-07-19 03:38] LABS: ANISOCYTOSIS NOT PRESENT (NOT PRESENT)
[2017-07-19] MEDS: SODIUM CHLORIDE 1,000 ML IV SCH ×2 (03:56→19:30)
[2017-07-19] MEDS: DUONEB NEB SCH ×3 (04:43→21:55)
[2017-07-19] MEDS: SOLU-MEDROL 40 MG IVP SCH ×3 (05:56→20:55)
--- NOTE | 2017-07-19 07:50 | DI ---
EXAM: Chest two views HISTORY: Cough and COMPARISON: 09/22/2016 TECHNIQUE: Two views of the chest were performed FINDINGS: Lower airway bronchial wall thickening. thickening. No airspace consolidation. There is no pleural effusion or pneumothorax. The heart is normal in size. The mediastinal contour is normal . There are no acute abnormalities of the bones. There is a 1.2 x 4.9 cm calcific density in the lef t upper thorax that may be external to the patient or in the chest wall as seen on the lateral view. IMPRESSION: 1. Lower airway thickening may represent reactive airways disease or bronchiolitis. No focal airspac e consolidation. 2. 1.2 x 4.9 cm calcific density in the left upper thorax that may be external to the patient or in t he chest wall as seen on the lateral view. Recommend clinical correlation.
[2017-07-19] MEDS: LACTULOSE PO SCH ×3 (08:09→20:54)
[2017-07-19] MEDS: KLONOPIN PO SCH ×2 (08:10→20:55)
[2017-07-19] MEDS: NEURONTIN PO SCH ×2 (08:10→20:54)
[2017-07-19] MEDS: PROTONIX PO SCH (08:10)
[2017-07-19] MEDS: ALDACTONE PO SCH (08:10)
[2017-07-19] MEDS ORDERED: NON-FORMULARY MEDICATION (Buspirone Hcl [Buspirone Hcl] 15 MG) PO SCH (09:00)
[2017-07-19] MEDS: ZOFRAN 4 MG/2 ML IVP PRN ×2 (09:05→17:40)
[2017-07-19] MEDS: AZACTAM 1 GM in SODIUM CHLORIDE 50 ML IV SCH ×2 (14:28→20:55)
[2017-07-19] MEDS: BUSPAR PO SCH (14:28)
[2017-07-19] MEDS ORDERED: CHLORASEPTIC SPRAY MM PRN (17:05)
[2017-07-19] MEDS: CEPACOL SORE THROAT LOZENGE MUCOUSMEMB PRN (17:41)
[2017-07-19] MEDS: PROAIR HFA IH PRN (17:42)
[2017-07-19] MEDS: ZOLOFT PO SCH (20:54)
[2017-07-19] MEDS: MUCINEX PO SCH (21:04)
[2017-07-20] MEDS: DEMEROL 25 MG/ML SYRINGE IVP PRN ×3 (01:20→21:19)
[2017-07-20] MEDS: ZOFRAN 4 MG/2 ML IVP PRN ×3 (01:20→21:19)
[2017-07-20 04:54] LABS: BASOPHILS % (AUTO) 0.3 % (0.0-3.0); HEMATOCRIT 36.6 % (37.0-47.0); HEMOGLOBIN 12.2 g/dl (12.0-16.0); IMMATURE GRANULOCYTE % (AUTO) 0.6 % (0.0-5.0); LYMPHOCYTES # (AUTO) 0.2 K/uL (0.60-3.4); MEAN CORPUSCULAR HEMOGLOBIN 31.7 pg (27.0-31.0); MEAN CORPUSCULAR HGB CONC 33.3 (31.8-35.4); MEAN CORPUSCULAR VOLUME 95.1 fl (81.0-99.0); MONOCYTES # (AUTO) 0.3 K/uL (0.4-2.0); MONOCYTES % (AUTO) 7.4 (0-10); NEUTROPHILS % (AUTO) 85.7; RED BLOOD COUNT 3.85 10^6/ul (4.20-5.40); WHITE BLOOD COUNT 3.52 K/ul (4.6-10.2)
[2017-07-20 05:06] LABS: PLATELET COUNT 26 10^3/uL (140-440)
[2017-07-20] MEDS: DUONEB NEB SCH ×3 (05:07→21:36)
[2017-07-20 05:19] LABS: ALBUMIN 2.7 g/dL (3.4-5.0); ALBUMIN/GLOBULIN RATIO 0.63; ANION GAP 11.7; BILIRUBIN,TOTAL 1.49 mg/dL (0.00-1.20); BUN/CREATININE RATIO 19.04; CALCIUM 8.5 mg/dL (8.2-10.2); CREATININE 0.63 mg/dL (0.60-1.30); POTASSIUM 4.7 mmol/L (3.5-5.10)
[2017-07-20] MEDS: SOLU-MEDROL 40 MG IVP SCH ×3 (05:43→21:10)
[2017-07-20] MEDS: PROTONIX PO SCH (05:43)
[2017-07-20] MEDS: LASIX TAB PO SCH (05:43)
[2017-07-20] MEDS ORDERED: PREPARATION H OINTMENT RC PRN (08:28)
[2017-07-20] MEDS: BUSPAR PO SCH (08:38)
[2017-07-20] MEDS: ALDACTONE PO SCH (08:38)
[2017-07-20] MEDS: MUCINEX PO SCH ×2 (08:38→21:11)
[2017-07-20] MEDS: NEURONTIN PO SCH ×2 (08:38→21:11)
[2017-07-20] MEDS: KLONOPIN PO SCH ×2 (08:38→21:11)
[2017-07-20] MEDS: AZACTAM 1 GM in SODIUM CHLORIDE 50 ML IV SCH ×2 (08:39→21:10)
[2017-07-20] MEDS: LACTULOSE PO SCH ×4 (08:41→21:11)
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
[2017-07-20] MEDS: SODIUM CHLORIDE 1,000 ML IV SCH ×2 (10:46→23:50)
--- NOTE | 2017-07-20 11:35 | US ---
EXAM: Ultrasound abdomen limited. HISTORY: Elevated bilirubin. Elevated liver enzymes. COMPARISON: CT 07/15/2016. TECHNIQUE: Abdominal, real time with image documentation: limited (eg, single organ, quadrant, foll ow-up) FINDINGS: The liver demonstrates a nodular surface contour with coarsened echotexture pattern. No d iscrete liver lesion identified. No intrahepatic biliary dilatation identified intrahepatic biliary dilatation. Portal venous flow is normal in direction. The gallbladder is absent. Common duct darius ures approximately 0.9 cm. Visualized portions of the pancreas are unremarkable. Trace amount of per ihepatic ascites noted. IMPRESSION: Cirrhosis with trace ascites.
[2017-07-20] MEDS: CEPACOL SORE THROAT LOZENGE MUCOUSMEMB PRN (21:11)
[2017-07-20] MEDS: ZOLOFT PO SCH (21:11)
[2017-07-21 04:47] LABS: HEMATOCRIT 36.7 % (37.0-47.0); HEMOGLOBIN 12.2 g/dl (12.0-16.0); IMMATURE GRANULOCYTE % (AUTO) 0.7 % (0.0-5.0); LYMPHOCYTES # (AUTO) 0.2 K/uL (0.60-3.4); LYMPHOCYTES % (AUTO) 5.9 (10.0-50.0); MEAN CORPUSCULAR HEMOGLOBIN 31.3 pg (27.0-31.0); MEAN CORPUSCULAR HGB CONC 33.2 (31.8-35.4); MEAN CORPUSCULAR VOLUME 94.1 fl (81.0-99.0); MONOCYTES # (AUTO) 0.2 K/uL (0.4-2.0); MONOCYTES % (AUTO) 6.9 (0-10); NEUTROPHILS # (AUTO) 2.5 K/ul (2.0-6.9); NEUTROPHILS % (AUTO) 86.5; WHITE BLOOD COUNT 2.89 K/ul (4.6-10.2)
[2017-07-21 04:51] LABS: PLATELET COUNT 49 10^3/uL (140-440)
[2017-07-21 05:06] LABS: ALBUMIN 2.7 g/dL (3.4-5.0); ALBUMIN/GLOBULIN RATIO 0.63; ANION GAP 12.2; BILIRUBIN,TOTAL 1.21 mg/dL (0.00-1.20); BUN/CREATININE RATIO 23.18; CALCIUM 8.2 mg/dL (8.2-10.2); CREATININE 0.69 mg/dL (0.60-1.30); POTASSIUM 4.2 mmol/L (3.5-5.10)
[2017-07-21] MEDS: DUONEB NEB SCH ×3 (05:06→21:55)
[2017-07-21] MEDS: SOLU-MEDROL 40 MG IVP SCH ×3 (05:30→20:33)
[2017-07-21] MEDS: PROTONIX PO SCH (05:30)
[2017-07-21] MEDS: ALDACTONE PO SCH (09:25)
[2017-07-21] MEDS: AZACTAM 1 GM in SODIUM CHLORIDE 50 ML IV SCH ×2 (09:26→20:34)
[2017-07-21] MEDS: BUSPAR PO SCH (09:26)
[2017-07-21] MEDS: KLONOPIN PO SCH ×2 (09:27→20:33)
[2017-07-21] MEDS: MUCINEX PO SCH ×2 (09:27→20:33)
[2017-07-21] MEDS: LACTULOSE PO SCH ×3 (09:27→20:33)
[2017-07-21] MEDS: NEURONTIN PO SCH ×2 (09:27→20:35)
[2017-07-21] MEDS: ZOFRAN 4 MG/2 ML IVP PRN ×2 (10:07→21:37)
[2017-07-21] MEDS: DEMEROL 25 MG/ML SYRINGE IVP PRN ×2 (10:07→21:38)
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
[2017-07-21] MEDS: ZOLOFT PO SCH (20:33)
[2017-07-21] MEDS: SODIUM CHLORIDE 1,000 ML IV SCH (20:40)
[2017-07-22] MEDS: DUONEB NEB SCH ×3 (05:06→21:12)
[2017-07-22 05:26] LABS: BASOPHILS % (AUTO) 0.3 % (0.0-3.0); HEMATOCRIT 37.2 % (37.0-47.0); HEMOGLOBIN 12.5 g/dl (12.0-16.0); IMMATURE GRANULOCYTE % (AUTO) 1.1 % (0.0-5.0); LYMPHOCYTES # (AUTO) 0.2 K/uL (0.60-3.4); MEAN CORPUSCULAR HEMOGLOBIN 32.1 pg (27.0-31.0); MEAN CORPUSCULAR HGB CONC 33.6 (31.8-35.4); MEAN CORPUSCULAR VOLUME 95.6 fl (81.0-99.0); MONOCYTES # (AUTO) 0.4 K/uL (0.4-2.0); MONOCYTES % (AUTO) 11.7 (0-10); NEUTROPHILS # (AUTO) 3.1 K/ul (2.0-6.9); NEUTROPHILS % (AUTO) 81.9; RED BLOOD COUNT 3.89 10^6/ul (4.20-5.40); WHITE BLOOD COUNT 3.77 K/ul (4.6-10.2)
[2017-07-22 05:27] LABS: PLATELET COUNT 34 10^3/uL (140-440)
[2017-07-22 05:45] LABS: ALBUMIN 2.7 g/dL (3.4-5.0); ALBUMIN/GLOBULIN RATIO 0.69; ANION GAP 9.5; BILIRUBIN,TOTAL 1.31 mg/dL (0.00-1.20); BUN/CREATININE RATIO 15.15; CREATININE 0.66 mg/dL (0.60-1.30); POTASSIUM 3.5 mmol/L (3.5-5.10); TOTAL PROTEIN 6.6 g/dL (6.4-8.2)
[2017-07-22] MEDS: SOLU-MEDROL 40 MG IVP SCH ×3 (06:00→20:33)
[2017-07-22] MEDS: LASIX TAB PO SCH (06:01)
[2017-07-22] MEDS: PROTONIX PO SCH (06:01)
[2017-07-22] MEDS: ZOFRAN 4 MG/2 ML IVP PRN ×3 (06:07→22:26)
[2017-07-22] MEDS: DEMEROL 25 MG/ML SYRINGE IVP PRN ×3 (06:07→22:27)
[2017-07-22] MEDS: SODIUM CHLORIDE 1,000 ML IV SCH ×3 (07:24→14:34)
[2017-07-22] MEDS ORDERED: ATIVAN IVP PRN (07:44)
[2017-07-22] MEDS ORDERED: NON-FORMULARY MEDICATION (Risperidone [Risperdal] 0.5 MG) PO SCH (07:45)
[2017-07-22] MEDS ORDERED: RISPERDAL PO STA (07:45)
[2017-07-22] MEDS ORDERED: LASIX IVP STA (07:49)
[2017-07-22] MEDS ORDERED: RISPERDAL PO SCH ×2 (08:00→21:00)
[2017-07-22] MEDS: AZACTAM 1 GM in SODIUM CHLORIDE 50 ML IV SCH ×2 (08:15→20:36)
[2017-07-22] MEDS: PROAIR HFA IH PRN (08:15)
[2017-07-22] MEDS: LACTULOSE PO SCH ×3 (08:15→20:36)
[2017-07-22] MEDS: ALDACTONE PO SCH (08:16)
[2017-07-22] MEDS: MUCINEX PO SCH ×2 (08:16→20:37)
[2017-07-22] MEDS: KLONOPIN PO SCH ×2 (08:16→20:38)
[2017-07-22] MEDS: NEURONTIN PO SCH ×2 (08:16→20:37)
[2017-07-22] MEDS: BUSPAR PO SCH (08:17)
[2017-07-22] MEDS ORDERED: ATIVAN ONE (15:40)
[2017-07-22] MEDS ORDERED: ATIVAN PO PRN (15:41)
[2017-07-22] MEDS: ZOLOFT PO SCH (20:38)
[2017-07-23] MEDS: SOLU-MEDROL 40 MG IVP SCH ×3 (04:10→22:05)
[2017-07-23] MEDS: DUONEB NEB SCH ×3 (05:07→22:55)
[2017-07-23 05:22] LABS: HEMATOCRIT 34.3 % (37.0-47.0); HEMOGLOBIN 11.9 g/dl (12.0-16.0); IMMATURE GRANULOCYTE % (AUTO) 0.7 % (0.0-5.0); LYMPHOCYTES # (AUTO) 0.2 K/uL (0.60-3.4); LYMPHOCYTES % (AUTO) 5.6 (10.0-50.0); MEAN CORPUSCULAR HEMOGLOBIN 32.1 pg (27.0-31.0); MEAN CORPUSCULAR HGB CONC 34.7 (31.8-35.4); MEAN CORPUSCULAR VOLUME 92.5 fl (81.0-99.0); MONOCYTES # (AUTO) 0.3 K/uL (0.4-2.0); MONOCYTES % (AUTO) 9.7 (0-10); NEUTROPHILS # (AUTO) 2.3 K/ul (2.0-6.9); RED BLOOD COUNT 3.71 10^6/ul (4.20-5.40); WHITE BLOOD COUNT 2.69 K/ul (4.6-10.2)
[2017-07-23 05:25] LABS: PLATELET COUNT 25 10^3/uL (140-440)
[2017-07-23 05:39] LABS: ALBUMIN 2.5 g/dL (3.4-5.0); ALBUMIN/GLOBULIN RATIO 0.71; ANION GAP 9.9; BILIRUBIN,TOTAL 1.31 mg/dL (0.00-1.20); BUN/CREATININE RATIO 14.75; CALCIUM 8.2 mg/dL (8.2-10.2); CREATININE 0.61 mg/dL (0.60-1.30); POTASSIUM 3.9 mmol/L (3.5-5.10)
[2017-07-23] MEDS: PROTONIX PO SCH (06:01)
[2017-07-23] MEDS ORDERED: ATIVAN PO PRN (07:42)
[2017-07-23] MEDS: RISPERDAL PO SCH ×2 (09:47→21:32)
[2017-07-23] MEDS: MUCINEX PO SCH ×2 (09:47→21:32)
[2017-07-23] MEDS: LACTULOSE PO SCH ×3 (09:47→21:31)
[2017-07-23] MEDS: NEURONTIN PO SCH ×2 (09:48→21:32)
[2017-07-23] MEDS: BUSPAR PO SCH (09:48)
[2017-07-23] MEDS: KLONOPIN PO SCH ×2 (09:48→21:32)
[2017-07-23] MEDS: ALDACTONE PO SCH (09:49)
[2017-07-23] MEDS ORDERED: CALMOSEPTINE OINTMENT TP PRN (10:34)
[2017-07-23] MEDS: AZACTAM 1 GM in SODIUM CHLORIDE 50 ML IV SCH ×2 (10:45→21:33)
[2017-07-23] MEDS: ZOFRAN 4 MG/2 ML IVP PRN (10:57)
[2017-07-23] MEDS: DEMEROL 25 MG/ML SYRINGE IVP PRN (10:57)
[2017-07-23] MEDS ORDERED: DEMEROL 25 MG/ML SYRINGE IM PRN (16:45)
[2017-07-23] MEDS ORDERED: ZOFRAN ODT PO PRN (16:45)
[2017-07-23] MEDS: SODIUM CHLORIDE 1,000 ML IV SCH (17:20)
[2017-07-23] MEDS: ZOLOFT PO SCH (21:32)
[2017-07-24 05:03] LABS: HEMATOCRIT 34.8 % (37.0-47.0); HEMOGLOBIN 11.9 g/dl (12.0-16.0); IMMATURE GRANULOCYTE % (AUTO) 1.3 % (0.0-5.0); LYMPHOCYTES # (AUTO) 0.3 K/uL (0.60-3.4); LYMPHOCYTES % (AUTO) 4.5 (10.0-50.0); MEAN CORPUSCULAR HEMOGLOBIN 31.6 pg (27.0-31.0); MEAN CORPUSCULAR HGB CONC 34.2 (31.8-35.4); MEAN CORPUSCULAR VOLUME 92.3 fl (81.0-99.0); MONOCYTES # (AUTO) 0.7 K/uL (0.4-2.0); NEUTROPHILS # (AUTO) 4.6 K/ul (2.0-6.9); NEUTROPHILS % (AUTO) 81.2; RED BLOOD COUNT 3.77 10^6/ul (4.20-5.40)
[2017-07-24] MEDS: DUONEB NEB SCH (05:10)
[2017-07-24 05:12] LABS: PLATELET COUNT 35 10^3/uL (140-440)
[2017-07-24 05:28] LABS: ALBUMIN 2.3 g/dL (3.4-5.0); ALBUMIN/GLOBULIN RATIO 0.74; ANION GAP 8.8; BILIRUBIN,TOTAL 1.41 mg/dL (0.00-1.20); BUN/CREATININE RATIO 14.28; CALCIUM 7.8 mg/dL (8.2-10.2); CREATININE 0.63 mg/dL (0.60-1.30); POTASSIUM 3.8 mmol/L (3.5-5.10); TOTAL PROTEIN 5.4 g/dL (6.4-8.2)
[2017-07-24 05:37] VITALS: BP 108/72; TEMP 98.5
[2017-07-24] MEDS: PROTONIX PO SCH (05:45)
[2017-07-24] MEDS: LASIX TAB PO SCH (05:45)
[2017-07-24] MEDS: SOLU-MEDROL 40 MG IVP SCH (06:00)
[2017-07-24] MEDS: BUSPAR PO SCH (09:38)
[2017-07-24] MEDS: LACTULOSE PO SCH (09:38)
[2017-07-24] MEDS: NEURONTIN PO SCH (09:38)
[2017-07-24] MEDS: RISPERDAL PO SCH (09:38)
[2017-07-24] MEDS: ALDACTONE PO SCH (09:39)
[2017-07-24] MEDS: MUCINEX PO SCH (09:39)
[2017-07-24] MEDS: AZACTAM 1 GM in SODIUM CHLORIDE 50 ML IV SCH (09:39)
[2017-07-24] MEDS: KLONOPIN PO SCH (09:43)
--- NOTE | 2017-07-24 10:44 | HOLTER ---
PATIENT INFORMATION AND COMMENTS Attending Physician: KENNETH DOMINGUEZ/RICHARD Indications: SYNCOPE __ Patient Medications: BUSPIRONE, CLONAZEPAM, LASIX, ZOFRAN, PROTONIX, PROPRANOLOL, RISPERDAL, DUONEB, KLONOPIN, NEURONTIN, ZOLOFT, ALDACTONE __ Pre-procedure Summary: Protocol: Standard Heart Rate Started: 07/18/171817 Minimum: 45 BPM Weight: 127 LBS Ended: 07/19/171817 Maximum: 148 BPM Height: 55" Duration: 24 HOURS Average: 66 BPM _ INTERPRETATIONS/OBSERVATIONS: 1. BASIC RHYTHM: SINUS, RATE 45 BPM TO 120 BPM, AVERAGE 65 BPM 2. FREQUENT PAC'S, 7% T0 8% OF BEATS SCANNED, PVC'S RARE TO INFREQUENT, NO TACHY ARRHYTHMIAS 3. NO ST-T WAVE CHANGES FROM BASELINE 4. ACTIVITY LOG NOT AVAILABLE MTDD
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
--- NOTE | 2017-08-28 10:13 | PN ---
DATE OF SERVICE: 07/23/17 SUBJECTIVE: The patient was admitted with bronchitis and pancytopenia. The patient has been having trouble sleeping. She has not been sleeping for almost two days. All of the time that she slept was three hours so far. Risperdal 0.5 at that time was started. It did not help still. Pacing and walking all over the room, restless, but not aggressive or anything at this time. She says that she all wound up and she needs some help. Otherwise there is still some cough and getting up some phlegm. Breathing treatments are helping. REVIEW OF SYSTEMS: CONSTITUTIONAL: No fever, no chills. HEENT: Normal. ENDOCRINE: No weight gain, no weight loss. CVS: No angina symptoms. No CHF symptoms. No palpitations. No atypical chest pain for CAD. No shortness of breath. No PND, no orthopnea. RESPIRATORY: Cough, no hemoptysis. GI: No nausea, no vomiting. No abdominal pain. : No hematuria. No polyuria. MUSCULOSKELETAL:. No joint swelling. PSYCHIATRIC: Not anxious. No depression. No suicidal thoughts. No homicidal thoughts. SKIN: Intact. No rash. PHYSICAL EXAMINATION: V/S: Blood pressure 192/71, respiratory rate 18, heart rate 74, temperature 97.6 , saturation 95. HEENT: Normocephalic, atraumatic. Mucosa dry. NECK: Supple. No JVD, no carotid bruit. No lymphadenopathy. LUNGS: Decreased with basilar crackles. No rales or rhonchi. HEART: S1, S2 normal. No S3. No murmur, gallop or regurgitation. ABDOMEN: Soft, nontender. Bowel sounds active. No rigidity. No rebound or guarding. No CVA tenderness. EXTREMITIES: No clubbing, cyanosis or pedal edema. MUSCULOSKELETAL: No joint swelling. NEUROLOGIC: Awake, alert, oriented times three. No focal deficit. LYMPHATIC: No lymph nodes palpable. SKIN: Intact. LABS: White count 2.6, hemoglobin 11.9, hematocrit 34.3, platelet count 25, sodium 137, potassium 3.9, chloride 108, bicarb 25, BUN 9, creatinine 0.61. ASSESSMENT: 1. HISTORY OF BIPOLAR AND SCHIZOPHRENIA. THE PATIENT IS RESTLESS AND NO SLEEP FOR ALMOST TWO DAYS. 2. UPPER RESPIRATORY INFECTION GETTING BETTER 3. PANCYTOPENIA 4. HISTORY OF LIVER CIRRHOSIS AND HEPATITIS C 5. DEPRESSION 6. ANXIETY 7. OSTEOARTHRITIS 8. DJD OF THE SPINE 9. HYPERTENSION 10. DYSLIPIDEMIA 11. RIGHT UPPER EXTREMITY CONTRACTURE PLAN: 1. Will increase the Risperdal to 0.5 mg twice a day. 2. Ativan 0.5 mg twice a day. 3. Continue breathing treatments. 4. Daily I & O's. TIME SPENT: More than 30 minutes MTDD
--- NOTE | 2017-08-28 10:32 | DS ---
DATE OF SERVICE: 07/24/17 FINAL DIAGNOSIS: 1. SYNCOPE, POSITIONAL 2. UPPER RESPIRATORY INFECTION 3. STATUS POST PANCYTOPENIC WITH THROMBOCYTOPENIA 4. ANEMIA 5. HEPATITIS C 6. DEPRESSION 7. ANXIETY 8. SCHIZOPHRENIA 9. BURN WOUND OF THE RIGHT UPPER EXTREMITY WITH CONTRACTURE PLAN: 1. Discharge the patient home. 2. Follow up with the [facility] within 5 to 7 days. 3. New medications: Lactulose 30 ML three times a day Spironolactone 25 mg daily Zoloft 50 mg at bedtime Lasix 20 mg every other day Protonix 40 mg p.o. daily Risperdal 0.5 mg at bedtime 4. Continue home medications: Neurontin 300 mg twice daily Propranolol 10 mg three times daily 5. Diet: High protein diet. Iron rich diet. 6. Activity: As much as tolerated. DISEASE SPECIFIC EDUCATION: About the pancytopenia, anemia, low platelets and the risk of bleeding were discussed. She verbalized understanding. HOSPITAL COURSE: Catalina Díaz who is a 57 year old female with a history of hepatitis C who had been seeing a GI doctor and had a treatment done came to the emergency room with cough and congestion and also had an episode of where she was trying to get up from a sitting position after washing clothes and almost fell and passed out. At that time, the patient was admitted to the hospital. The patient was found to be pancytopenic. She was started on steroids and CT of the head which was negative. Chest x-ray was negative. Holter Monitoring was put on the patient which showed the sinus rhythm from 45 to 120, frequent PAC's 7 to [address]-T wave changes. Activity log not done. Gradually the white count and platelets were getting better. Meanwhile, the patient was having trouble sleeping and was not able to sleep for three days. The patient was started on Risperdal 0.5 mg once a day and then twice a day. Ativan was given to help the patient calm down. At that time , the patient was able to sleep and feeling a lot better. At that time the patient was discharged to home. Time spent on the patient is more than 65 minutes today. MTDD
== END 2017-07-24 10:15 | disposition home or self-care (01) | DRG 312 ==
LOC: ED 09:06 → MEDSURG A 11:21 → SCU 07-19 07:00 → MEDSURG A 07-19 23:50
PROVIDERS: ADMIT Emergency Medicine; ATTEND Emergency Medicine
DX: R55 Syncope and collapse (principal); D61.818 Other pancytopenia; J06.9 Acute upper respiratory infection, unspecified; D64.9 Anemia, unspecified; D69.6 Thrombocytopenia, unspecified; I10 Essential (primary) hypertension; K74.60 Unspecified cirrhosis of liver; R31.9 Hematuria, unspecified; S09.90XA Unspecified injury of head, initial encounter; W19.XXXA Unspecified fall, initial encounter; B18.2 Chronic viral hepatitis C; F41.8 Other specified anxiety disorders; M24.50 Contracture, unspecified joint; F20.9 Schizophrenia, unspecified; G47.00 Insomnia, unspecified; F31.9 Bipolar disorder, unspecified; M47.9 Spondylosis, unspecified; E78.5 Hyperlipidemia, unspecified; M19.90 Unspecified osteoarthritis, unspecified site; Y92.009 Unspecified place in unspecified non-institutional (private) residence as the place of occurrence of the external cause; Z87.828 Personal history of other (healed) physical injury and trauma; Z79.899 Other long term (current) drug therapy
CPT/HCPCS: 36415; 80053; 81001; 82140; 82550; 84436; 84443; 84481; 84484; 85007; 85025; 85610; 85730; 87081; 93005; 93010; 93227; 94640; 99284

== ENCOUNTER 2017-07-27 14:50 | Outpatient (CLI) | END 2017-07-27 14:51 | disposition short-term general hospital (02) | LOC: AMBL 14:50 | PROVIDERS: ATTEND Internal Medicine | DX: R10.9 Unspecified abdominal pain (principal); R14.0 Abdominal distension (gaseous); Z87.19 Personal history of other diseases of the digestive system; S40.022A Contusion of left upper arm, initial encounter; S40.021A Contusion of right upper arm, initial encounter ==

== ENCOUNTER 2017-09-22 20:23 | Outpatient (CLI) | END 2017-09-22 20:24 | LOC: AMBL 20:23 | PROVIDERS: ATTEND Family Medicine | DX: F43.9 Reaction to severe stress, unspecified (principal) ==

== ENCOUNTER 2017-10-11 07:40 | Emergency (ER) ==
[2017-10-11 07:47] VITALS: BP 92/64; TEMP 97.9; BMI 28.0
[2017-10-11] MEDS ORDERED: SODIUM CHLORIDE 1,000 ML IV STA (08:02)
[2017-10-11] MEDS ORDERED: NORCO 10-325 PO STA (10:12)
--- NOTE | 2017-10-11 11:12 | ED.PDOC ---
General ED Provider: Dr. MOLLY BLISS Chief Complaint: Headache Stated Complaint: chest pain Time Seen by Physician: 07:43 (c/p x 4 days more today) Mode of Arrival: Walk-In Information Source: Patient Exam Limitations: No limitations Primary Care Provider: JIMMY SCHROEDER Nursing and Triage Documentation Reviewed and Agree: Yes Reviewed sepsis parameters & appropriate labs ordered?: Yes System Inflammatory Response Syndrome: Not Applicable Sepsis Protocol: For patient's 13 years and over: Temp is 96.8 and below OR 101 and greater Pulse >90 BPM Resp >20/minute Acutely Altered Mental Status Are patient's symptoms suggestive of a new infection, such as: -Pneumonia -Skin, Soft Tissue -Endocarditis -UTI -Bone, Joint Infection -Implantable Device -Acute Abdominal Infection -Wound Infection -Meningitis -Blood Stream Catheter Infection -Unknown System Inflammatory Response Syndrome: Not Applicable Cardiovascular Complaint Exam - Chest Pain Complaint/Exam Onset: Gradual (CAD, CHF) Duration: about 5 days Symptoms Are: Still present Timing: Intermittent Initial Severity: Mild Current Severity: Mild Location: Reports: Discrete, Midsternal Pain Radiates: Reports: None Character: Reports: Dull, Tightness Aggravating: Reports: None Alleviating: Reports: None Associated Signs and Symptoms: Denies: Diaphoresis, Nausea, Vomiting, Fever, Palpitations, Cough, Hemoptysis, Back pain, Abdominal pain, Dizziness, Short of air, Calf pain, Calf swelling Related Surgical History: Reports: None History of Healthcare-Acquired Pneumonia: Reports: No AMI/ACS Risk Factors: Reports: Sedentary, Smoking Pulmonary Embolism Risk Factors: Reports: Bedrest Prior Care for this Complaint: No Recent Stress Test: No Recent Echo/LV Function: No JVD Present: No Subcutaneous Emphysema Present: No Diminshed Breath Sounds: No Reproducible Chest Wall Pain: No Bilateral Pulses Present: No Unequal Pulses Noted: No If Risk Factors for AMI/ACS Consider: EKG, Cardiac Enzymes Documents Reviewed: 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 Infection Quality Indicators For Acute NC or Cardiac Chest Pain: EKG in 10min. Review of Systems - Review Of Systems Constitutional: Reports: No symptoms Eyes: Reports: No symptoms Ears, Nose, Mouth, Throat: Reports: No symptoms Respiratory: Reports: No symptoms Cardiac: Reports: Chest pain GI: Reports: No symptoms : Reports: No symptoms Musculoskeletal: Reports: No symptoms Skin: Reports: No symptoms Neurological: Reports: No symptoms Endocrine: Reports: No symptoms Hematologic/Lymphatic: Reports: No symptoms All Other Systems: Reviewed and Negative Past Medical History - Past Medical History Previously Healthy: No Endocrine: Reports: None Cardiovascular: Reports: CAD, CHF Respiratory: Reports: None Hematological: Reports: Other (pancytopenia) Gastrointestinal: Reports: Other (hepc) Genitourinary: Reports: None Neuro/Psych: Reports: Anxiety, Depression, Bipolar Disorder Musculoskeletal: Reports: None Cancer: Reports: None Last Menstrual Period: hysterectomy Other Pertinent Past Medical History: hep c/gi bleeds,alcoholism (last drink 03/21),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) - Surgical History General Surgical History: Reports: Hysterectomy (hysterectomy 1991), Cholecystectomy (gallbladder 1990), Orthopedic (left arm surgery after palomino,), Other (oral surgery,left arm surgery after palomino,palomino on back) - Family History Family History: Reports: Unknown - Social History Smoking Status: Current every day smoker, Light tobacco smoker Hx Substance Use: Yes (marijuana) Alcohol Screening: None - Immunizations Influenza Vaccine within 12 Months: No Pneumococcal Vaccine up to Date: No Physical Exam - Physical Exam Appearance: Ill-appearing Ill-appearing: Mild Pain Distress: Mild Eyes: EDILMA, EOMI, Conjunctiva clear ENT: Ears normal, Nose normal, Oropharynx normal Respiratory: Airway patent, Breath sounds clear, Breath sounds equal, Respirations nonlabored Cardiovascular: RRR, Pulses normal, No rub, No murmur GI/: Soft, Nontender, No masses, Bowel sounds normal, No Organomegaly Musculoskeletal: Normal strength, ROM intact, No edema, No calf tenderness Skin: Warm, Dry, Normal color Neurological: Sensation intact, Motor intact, Reflexes intact, Cranial nerves intact, Alert, Oriented Psychiatric: Affect appropriate, Mood appropriate Interpretation - Firer Helper Rate: Normal Rhythm: Sinus Ectopy: None - EKG Interpretation Rate: Normal Rhythm: Sinus Ectopy: None [place]: NL ST Segment: Normal Physician Notification - Case Discussed Physician Notified: juliano MACEDO Time of Notification: 12:28 (PLEASE CONSULT HOSPITALIST AND HE WILL FOLLOW THE PT ATTORNEY LAWYER) Physician Notified: ISRAEL MACEDO Time of Notification: 12:29 (TRANSFER NOW) Critical Care Note - Critical Care Note Total Time (mins): 0 Course - Course Hematology/Chemistry: 10/11/17 08:15 10/11/17 08:15 Orders, Labs, Meds: Lab Review 10/11/17 10/11/17 10/11/17 08:15 08:15 08:15 WBC 3.41 L RBC 2.04 L Hgb 6.3 L Hct 19.3 L MCV 94.6 MCH 30.9 MCHC 32.6 RDW Coeff of Eli 16.2 H Plt Count 51 L Immature Gran % (Auto) 2.3 Neut % (Auto) 54.0 Lymph % (Auto) 20.2 [place] % (Auto) 21.1 H Eos % (Auto) 1.8 Baso % (Auto) 0.6 Immature Gran # (Auto) 0.1 Neut # 1.8 L Lymph # 0.7 [place] # 0.7 Eos # 0.1 Baso # 0.0 Sodium 137 Potassium 3.4 L Chloride 109 H Carbon Dioxide 21 Anion Gap 10.4 BUN 12 Creatinine 0.53 L Estimated GFR (MDRD) 120.00 BUN/Creatinine Ratio 22.64 Glucose 96 Lactic Acid Calcium 7.4 L Total Bilirubin 1.5 H AST 50 H ALT 34 Alkaline Phosphatase 113 H Total Creatine Kinase 43 Troponin I < 0.0100 Total Protein 5.5 L Albumin 2.1 L Globulin 3.4 Albumin/Globulin Ratio 0.62 Procalcitonin Urine Color Urine Clarity Urine pH Ur Specific Marshall Urine Protein Urine Glucose (UA) Urine Ketones Urine Blood Urine Nitrite Urine Bilirubin Urine Urobilinogen Ur Leukocyte Esterase Ur Squamous Epith Cells Urine Mucus Stl Occult Blood (IFOB) Stool Occult Blood #2 Stool Occult Blood #3 Influenza A (Rapid) Influenza B (Rapid) Blood Type Antibody Screen Crossmatch (AHG) 10/11/17 10/11/17 10/11/17 08:15 08:15 08:15 WBC RBC Hgb Hct MCV MCH MCHC RDW Coeff of Eli Plt Count Immature Gran % (Auto) Neut % (Auto) Lymph % (Auto) [place] % (Auto) Eos % (Auto) Baso % (Auto) Immature Gran # (Auto) Neut # Lymph # [place] # Eos # Baso # Sodium Potassium Chloride Carbon Dioxide Anion Gap BUN Creatinine Estimated GFR (MDRD) BUN/Creatinine Ratio Glucose Lactic Acid 16.3 Calcium Total Bilirubin AST ALT Alkaline Phosphatase Total Creatine Kinase Troponin I Total Protein Albumin Globulin Albumin/Globulin Ratio Procalcitonin 0.05 Urine Color Urine Clarity Urine pH Ur Specific Marshall Urine Protein Urine Glucose (UA) Urine Ketones Urine Blood Urine Nitrite Urine Bilirubin Urine Urobilinogen Ur Leukocyte Esterase Ur Squamous Epith Cells Urine Mucus Stl Occult Blood (IFOB) Stool Occult Blood #2 Stool Occult Blood #3 Influenza A (Rapid) Negative by naat Influenza B (Rapid) Negative by naat Blood Type Antibody Screen Crossmatch (AHG) 10/11/17 10/11/17 10/11/17 08:30 11:30 11:48 WBC RBC Hgb Hct MCV MCH MCHC RDW Coeff of Eli Plt Count Immature Gran % (Auto) Neut % (Auto) Lymph % (Auto) [place] % (Auto) Eos % (Auto) Baso % (Auto) Immature Gran # (Auto) Neut # Lymph # [place] # Eos # Baso # Sodium Potassium Chloride Carbon Dioxide Anion Gap BUN Creatinine Estimated GFR (MDRD) BUN/Creatinine Ratio Glucose Lactic Acid Calcium Total Bilirubin AST ALT Alkaline Phosphatase Total Creatine Kinase Troponin I Total Protein Albumin Globulin Albumin/Globulin Ratio Procalcitonin Urine Color Yellow Urine Clarity Clear Urine pH 5.5 Ur Specific Marshall >=1.030 Urine Protein 1+ Urine Glucose (UA) Negative Urine Ketones Trace Urine Blood Negative Urine Nitrite Negative Urine Bilirubin 2+ Urine Urobilinogen 4.0 Ur Leukocyte Esterase Negative Ur Squamous Epith Cells 30-50 Urine Mucus 1+ Stl Occult Blood (IFOB) Negative Stool Occult Blood #2 Pending Stool Occult Blood #3 Pending Influenza A (Rapid) Influenza B (Rapid) Blood Type O POSITIVE Antibody Screen Negative Crossmatch (AHG) See Detail Orders Category Date Time Status EKG-(ED ONLY) Stat CARDIO 10/11/17 08:00 Completed EKG-(ED ONLY) Stat CARDIO 10/11/17 08:49 Completed ED IV/MEDIPORT/POWERPORT .ONCE EMERGENCY 10/11/17 08:02 Active BLOOD CULTURE Stat LAB 10/11/17 08:00 Received CBC W/ AUTO DIFF Stat LAB 10/11/17 08:15 Completed COMPREHENSIVE METABOLIC PANEL Stat LAB 10/11/17 08:15 Completed CREATINE KINASE Stat LAB 10/11/17 08:15 Completed FLU A/B MOLECULAR Stat LAB 10/11/17 08:15 Completed LACTIC ACID Stat LAB 10/11/17 08:15 Completed MOLECULAR GROUP A STREP Stat LAB 10/11/17 08:15 Completed OCCULT BLOOD, STOOL Stat LAB 10/11/17 11:49 Uncollected PROCALCITONIN Stat LAB 10/11/17 08:15 Completed Packed Red Blood Cells [PACKED CELLS] Stat LAB 10/11/17 11:21 Ordered TROPONIN I Stat LAB 10/11/17 08:15 Completed TYPE AND SCREEN Stat LAB 10/11/17 11:21 Ordered URINALYSIS C & S IF INDICATED Stat LAB 10/11/17 08:30 Completed 0.9 % Sodium Chloride [Saline Flush] MEDS 10/11/17 08:02 Active 1 syr IVF PRN PRN Hydrocodone Bit/Acetaminophen [[place] 10-325] MEDS 10/11/17 10:12 Discontinued 1 tab PO ONCE STA Sodium Chloride 0.9% [Sodium Chloride] 1,000 ml MEDS 10/11/17 08:02 Active IV 125 mls/hr Medications Generic Name Dose Route Start Last Admin Trade Name Freq PRN Reason Stop Dose Admin Sodium Chloride 1,000 mls @ 125 mls/hr 10/11/17 08:02 Sodium Chloride IV 10/11/17 16:01 .Q8H STA Sodium Chloride 1 syr 10/11/17 08:02 Saline Flush IVF PRN PRN To flush IV Discontinued Medications Generic Name Dose Route Start Last Admin Trade Name Freq PRN Reason Stop Dose Admin Acetaminophen/Hydrocodone Bitart 1 tab 10/11/17 10:12 10/11/17 10:36 [place] 10-325 PO 10/11/17 10:13 1 tab ONCE STA Administration Vital Signs: Temp Pulse Resp BP Pulse Ox 10/11/17 07:40 97.9 F 89 20 92/64 98 JARETT Risk Score JARETT Risk Score: Risk Score Odds of by 30D 0 0.1 (0.1-0.2) 1 0.3 (0.2-0.3) 2 0.4 (0.3-0.5) 3 0.7 (0.6-0.9) 4 1.2 (1.0-1.5) 5 2.2 (1.9-2.6) 6 3.0 (2.5-3.6) 7 4.8 (3.8-6.1) Departure - Departure Time of Disposition: 12:00 (spoke to doctor israel pt accepted for transfer ) Disposition: TSF SHORT-TRM HOSP Discharge Problem: Pancytopenia Chest pain Qualifiers: Chest pain type: unspecified Qualified Code(s): R07.9 - Chest pain, unspecified Anemia Qualifiers: Anemia type: unspecified type Qualified Code(s): D64.9 - Anemia, unspecified Instructions: Chest Pain (ED) Condition: Good Pt referred to PMD for follow-up: Yes IPMP verified?: Yes Allergies/Adverse Reactions: Allergies bismuth subsalicylate [From Pepto-Bismol] Adverse Reaction (Verified 10/11/17 07 :49) ibuprofen Adverse Reaction (Verified 10/11/17 07:49) Latex, Natural Rubber Adverse Reaction (Verified 10/11/17 07:49) morphine Adverse Reaction (Verified 10/11/17 07:49) Penicillins Adverse Reaction (Verified 10/11/17 07:49) promethazine HCl [From Phenergan] Adverse Reaction (Verified 10/11/17 07:49) sulfamethoxazole [From Bactrim] Adverse Reaction (Verified 10/11/17 07:49) tramadol [From Ultram] Adverse Reaction (Verified 10/11/17 07:50) trimethoprim [From Bactrim] Adverse Reaction (Verified 10/11/17 07:49) Home Medications: Ambulatory Orders Gabapentin [Neurontin] 300 mg PO BID 06/19/16 Clonazepam 0.5 mg PO BID 07/18/17 Furosemide [Lasix] 20 mg PO EVERY OTHER DAY 07/18/17 Ondansetron HCl [Zofran Tab] 4 mg PO Q6H PRN 07/18/17 Pantoprazole Sodium [Protonix] 40 mg PO DAILY 07/18/17 Propranolol HCl 10 mg PO TID 07/18/17 Risperidone [Risperdal] 0.5 mg PO BEDTIME 07/18/17 Sertraline HCl [Zoloft] 25 mg PO DAILY 10/11/17
--- NOTE | 2017-10-11 12:54 | DI ---
EXAM: CHEST FRONTAL AND LATERAL VIEWS HISTORY: Pain. COMPARISON: 07/18/2017 FINDINGS: Heart size and mediastinal contour remain within normal limits. No acute infiltrates. Normal vascularity with no pleural fluid or pneumothorax. The bony thorax has no acute finding. IMPRESSION: No acute process.
== END 2017-10-11 13:55 | disposition short-term general hospital (02) ==
LOC: ED 07:40
DX: D61.818 Other pancytopenia (principal); R07.9 Chest pain, unspecified; D64.9 Anemia, unspecified; R51 Headache; I25.10 Atherosclerotic heart disease of native coronary artery without angina pectoris; I50.9 Heart failure, unspecified; F17.210 Nicotine dependence, cigarettes, uncomplicated; Z79.899 Other long term (current) drug therapy; Z87.19 Personal history of other diseases of the digestive system
CPT/HCPCS: 36415; 80053; 81001; 82272; 82550; 83605; 84145; 84484; 85025; 86850; 86900; 86922; 87040; 87502; 87651; 93005; 93010; 99285

== ENCOUNTER 2017-10-11 13:52 | Outpatient (CLI) ==
[2017-10-11 07:47] VITALS: BMI 28.0
== END 2017-10-11 13:53 | disposition short-term general hospital (02) ==
LOC: AMBL 13:52
PROVIDERS: ATTEND Internal Medicine
DX: R53.83 Other fatigue (principal); R52 Pain, unspecified; I10 Essential (primary) hypertension

== ENCOUNTER 2017-10-17 19:38 | Outpatient (CLI) | END 2017-10-17 19:39 | disposition short-term general hospital (02) | LOC: AMBL 19:38 | PROVIDERS: ATTEND Family Medicine | DX: K92.0 Hematemesis (principal); K92.1 Melena ==

== ENCOUNTER 2018-01-26 11:32 | Outpatient (CLI) | END 2018-01-26 11:33 | disposition left against medical advice (07) | LOC: AMBL 11:32 | PROVIDERS: ATTEND Internal Medicine | DX: Z04.8 Encounter for examination and observation for other specified reasons (principal) ==

== ENCOUNTER 2018-02-13 15:16 | Outpatient (CLI) | END 2018-02-13 15:41 | disposition short-term general hospital (02) | LOC: AMBL 15:16 | PROVIDERS: ATTEND Internal Medicine | DX: F10.129 Alcohol abuse with intoxication, unspecified (principal) ==

== ENCOUNTER 2018-03-02 04:02 | Outpatient (CLI) | END 2018-03-02 04:27 | disposition short-term general hospital (02) | LOC: AMBL 04:02 | PROVIDERS: ATTEND Emergency Medicine | DX: R41.0 Disorientation, unspecified (principal); T50.905A Adverse effect of unspecified drugs, medicaments and biological substances, initial encounter; S40.022A Contusion of left upper arm, initial encounter; S40.021A Contusion of right upper arm, initial encounter; S20.211A Contusion of right front wall of thorax, initial encounter; Y04.8XXA Assault by other bodily force, initial encounter ==

== ENCOUNTER 2018-03-19 00:41 | Outpatient (CLI) ==
[2018-03-19 01:06] VITALS: BMI 26.4
== END 2018-03-19 00:48 | disposition short-term general hospital (02) ==
LOC: AMBL 00:41
PROVIDERS: ATTEND Family Medicine
DX: R07.9 Chest pain, unspecified (principal); R13.10 Dysphagia, unspecified; R07.0 Pain in throat

== ENCOUNTER 2018-03-19 00:54 | Emergency (ER) ==
[2018-03-19] MEDS ORDERED: GI COCKTAIL PO STA (00:57)
[2018-03-19 01:06] VITALS: BP 108/77; TEMP 98.7; BMI 26.4
--- NOTE | 2018-03-19 01:48 | CT ---
EXAM: CT chest without intravenous contrast 03/19/2018. Sagittal and coronal reformatted images ob tained HISTORY: Question foreign body within the esophagus COMPARISON: 07/06/2016, 03/19/2018 FINDINGS: The heart size appears stable within normal limits. The pulmonary trunk measures approxim ately 3.4 cm diameter. This could be seen in the setting of pulmonary arterial hypertension. Mild emphysematous change. There is no pulmonary consolidation, effusion or pneumothorax. No pulmonary mass. There is no acute abnormality of the thoracic esophagus. No dilatation or foreign body. IMPRESSION: 1. Please refer to report of CT abdomen pelvis for discussion of findings within the upper abdomen. 2. No foreign body visualized within the thoracic esophagus. 3. Dilatation of the pulmonary trunk as well as the right and left main pulmonary artery. These fin dings could be seen in the setting of pulmonary arterial hypertension 4. Mild emphysematous change.
--- NOTE | 2018-03-19 01:57 | CT ---
EXAM: CT scan abdomen pelvis without contrast HISTORY: Rule out foreign body COMPARISON: CT scan abdomen pelvis and 22,016 FINDINGS: Contiguous axial images obtained through the abdomen pelvis without contrast utilizing 3-m m collimation. Sagittal and coronal reconstructions were imaged and reviewed.. There is mild thicke dillan of the distal esophagus.. The stomach is decompressed and not well evaluated.. Benign granulom atous changes are noted at the right lung base. There is irregular cirrhotic appearing liver. There has been prior cholecystectomy. There is moderate splenomegaly.. Atherosclerotic changes are seen involving the aorta without aneurysm formation. The pancreas and adrenal glands are unremarkable. T here has been prior hysterectomy. There is normal retrocecal appendix Haziness is seen within the ro ot of the small bowel mesentery which may be related to mesenteritis.. There is colonic wall thicken ing seen within the ascending, transverse and proximal descending colon compatible with colitis. IMPRESSION: Cirrhosis with sequela of portal hypertension. Diverticulosis without diverticulitis. Colitis is seen involving the ascending transverse and proximal descending colon. Trace amount free fluid in the pelvis. Haziness is seen within the small bowel mesentery which is nonspecific may be related to mesenteritis .
--- NOTE | 2018-03-19 02:40 | ED.PDOC ---
General ED Provider: Dr. HUGH MATOS-ER Chief Complaint: Chest Wall Injury/Pain Stated Complaint: i ate a pork chop and i think it scratched me throat Time Seen by Physician: 00:55 Mode of Arrival: Ambulance Information Source: Patient Exam Limitations: No limitations Primary Care Provider: JIMMY SCHROEDER Nursing and Triage Documentation Reviewed and Agree: Yes Does patient meet sepsis criteria?: No System Inflammatory Response Syndrome: Not Applicable Sepsis Protocol: For patient's 13 years and over: Temp is 96.8 and below OR 101 and greater Pulse >90 BPM Resp >20/minute Acutely Altered Mental Status Are patient's symptoms suggestive of a new infection, such as: -Pneumonia -Skin, Soft Tissue -Endocarditis -UTI -Bone, Joint Infection -Implantable Device -Acute Abdominal Infection -Wound Infection -Meningitis -Blood Stream Catheter Infection -Unknown GI Complaint Exam - Abdominal Pain Complaint/Exam Onset: Gradual Duration: 2 days Symptoms Are: Still present Timing: Constant Initial Severity: Mild Current Severity: Mild Location of Pain: Epigastric Character: Reports: Dull, Aching Aggravating: Reports: None Alleviating: Reports: None Associated Signs and Symptoms: Denies: Diaphoresis, Fever, Cough, Chest pain, Dizziness, Back pain, Constipation, Blood in stool, Dysuria, Urinary frequency, Decreased urine output, Decreased appetite, Vaginal bleeding, Vaginal discharge , Nausea, Vomiting, Diarrhea, Sore throat, Decreased activity Review of Systems - Review Of Systems Constitutional: Reports: No symptoms Eyes: Reports: No symptoms Ears, Nose, Mouth, Throat: Reports: Throat pain Respiratory: Reports: No symptoms Cardiac: Reports: No symptoms GI: Reports: Abdominal pain : Reports: No symptoms Musculoskeletal: Reports: No symptoms Skin: Reports: No symptoms Neurological: Reports: No symptoms Endocrine: Reports: No symptoms Hematologic/Lymphatic: Reports: No symptoms All Other Systems: Reviewed and Negative Past Medical History - Past Medical History Previously Healthy: No Endocrine: Reports: None Cardiovascular: Reports: CAD, CHF Respiratory: Reports: None Hematological: Reports: Other (pancytopenia) Gastrointestinal: Reports: Other (hepc) Genitourinary: Reports: None Neuro/Psych: Reports: Anxiety, Depression, Bipolar Disorder Musculoskeletal: Reports: None Cancer: Reports: None Last Menstrual Period: PT AHS HAD A HYSTERECTOMY Other Pertinent Past Medical History: hep c/gi bleeds,alcoholism (last drink 03/21),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) - Surgical History General Surgical History: Reports: Hysterectomy (hysterectomy 1991), Cholecystectomy (gallbladder 1990), Orthopedic (left arm surgery after palomino,), Other (oral surgery,left arm surgery after palomino,palomino on back) - Family History Family History: Reports: Unknown - Social History Smoking Status: Current every day smoker, Light tobacco smoker Hx Substance Use: Yes (marijuana) Alcohol Screening: None - Immunizations Tetanus Shot up to Date: Yes Influenza Vaccine within 12 Months: No Pneumococcal Vaccine up to Date: No Physical Exam - Physical Exam Appearance: Well-appearing, No pain distress, Well-nourished Pain Distress: Mild Eyes: EDILMA, EOMI, Conjunctiva clear ENT: Ears normal, Nose normal, Oropharynx normal Neck: Supple Respiratory: Airway patent, Breath sounds clear, Breath sounds equal, Respirations nonlabored Cardiovascular: RRR, Pulses normal, No rub, No murmur GI/: Soft, Nontender, No masses, Bowel sounds normal, No Organomegaly Musculoskeletal: Normal strength Skin: Warm Neurological: Sensation intact Psychiatric: Affect appropriate, Mood appropriate Interpretation - Radiology Interpretation Radiology Interpretation By: Radiologist Radiology Results: Negative Exam Interpreted: CT Scan Critical Care Note - Critical Care Note Total Time (mins): 0 Course - Course Orders, Labs, Meds: Orders Category Date Time Status Mag-Al Plus//Lidocaine [Gi Cocktail] MEDS 03/19/18 00:57 Discontinued 30 ml PO ONCE STA CT ABDOMEN/PELVIS WO CONTRAST Stat RADS 03/19/18 00:[address] CHEST W/O CONTRAST Stat RADS 03/19/18 00:55 Completed Medications Discontinued Medications Generic Name Dose Route Start Last Admin Trade Name Sharona PRN Reason Stop Dose Admin Al Hydroxide/Mg Hydroxide 30 ml 03/19/18 00:57 03/19/18 01:29 Gi Cocktail PO 03/19/18 00:58 30 ml ONCE STA Administration Vital Signs: Temp Pulse Resp BP Pulse Ox 03/19/18 00:55 98.7 F 97 H 24 108/77 98 Departure - Departure Time of Disposition: 02:44 Disposition: HOME SELF-CARE Discharge Problem: Chest wall pain Instructions: Chest Wall Pain (ED) Condition: Stable Pt referred to PMD for follow-up: Yes IPMP verified?: No Additional Instructions: f/u wtih pcp Allergies/Adverse Reactions: Allergies bismuth subsalicylate [From Pepto-Bismol] Adverse Reaction (Verified 03/19/18 01 :08) ibuprofen Adverse Reaction (Verified 03/19/18 01:08) Latex, Natural Rubber Adverse Reaction (Verified 03/19/18 01:08) morphine Adverse Reaction (Verified 03/19/18 01:08) Penicillins Adverse Reaction (Verified 03/19/18 01:08) promethazine HCl [From Phenergan] Adverse Reaction (Verified 03/19/18 01:08) sulfamethoxazole [From Bactrim] Adverse Reaction (Verified 03/19/18 01:08) tramadol [From Ultram] Adverse Reaction (Verified 03/19/18 01:08) trimethoprim [From Bactrim] Adverse Reaction (Verified 03/19/18 01:08) Home Medications: Ambulatory Orders Gabapentin [Neurontin] 300 mg PO TID 06/19/16 Clonazepam 0.5 mg PO BID 07/18/17 Furosemide [Lasix] 20 mg PO EVERY OTHER DAY 07/18/17 Ondansetron HCl [Zofran Tab] 4 mg PO Q6H PRN 07/18/17 Pantoprazole Sodium [Protonix] 40 mg PO DAILY 07/18/17 Propranolol HCl 10 mg PO BID 07/18/17 Risperidone [Risperdal] 0.5 mg PO BEDTIME 07/18/17 Sertraline HCl [Zoloft] 25 mg PO DAILY 10/11/17 Disposition Discussed With: Patient
[2018-03-19] MEDS ORDERED: NORCO 5-325 PO STA (02:54)
== END 2018-03-19 06:53 | disposition home or self-care (01) ==
LOC: ED 00:54
DX: R07.89 Other chest pain (principal); R10.13 Epigastric pain; R07.0 Pain in throat; F17.210 Nicotine dependence, cigarettes, uncomplicated; Z79.899 Other long term (current) drug therapy
CPT/HCPCS: 99283

== ENCOUNTER 2018-04-10 17:30 | Outpatient (CLI) | END 2018-04-10 17:55 | disposition short-term general hospital (02) | LOC: AMBL 17:30 | PROVIDERS: ATTEND Internal Medicine | DX: S51.811A Laceration without foreign body of right forearm, initial encounter (principal); S61.411A Laceration without foreign body of right hand, initial encounter; F10.129 Alcohol abuse with intoxication, unspecified; M25.511 Pain in right shoulder; R07.89 Other chest pain; W10.8XXA Fall (on) (from) other stairs and steps, initial encounter ==

== ENCOUNTER 2018-04-19 20:31 | Outpatient (CLI) | END 2018-04-19 20:46 | disposition short-term general hospital (02) | LOC: AMBL 20:31 | PROVIDERS: ATTEND Internal Medicine Geriatric Medicine | DX: R10.9 Unspecified abdominal pain (principal); F10.129 Alcohol abuse with intoxication, unspecified ==